=== PATIENT | female | born 1940 | race Caucasian/White ===

== ENCOUNTER 2017-12-11 13:17 | Emergency (ER) | payer OTHER ==
[2017-12-11 14:00] LABS: Absolute Lymphocytes (CBC) 1.8 K/uL (0.7-4.9); Absolute Monocytes 0.4 K/uL (0.1-1.3); Absolute Neutrophil 4.1 K/uL (1.8-8.0); Hematocrit 39.6 % (36.0-45.0); Lymphocytes % 26.6 % (15.3-44.8); MCH 30.9 pg (27.0-35.0); MCV 91.3 fL (80-100); Monocytes % 6.3 % (3.3-12.3); RBC Red Blood Cell Count 4.33 M/uL (3.86-4.86)
[2017-12-11 14:04] LABS: Protime INR 2.93
--- NOTE | 2017-12-11 14:29 | RAD REPORT ---
EXAM DESCRIPTION: CT - Head Brain Wo Cont - 12/11/2017 1:49 pm CLINICAL HISTORY: Weakness, possible heat exhaustion history skin cancer head and neck region COMPARISON: Radiation planning study December 07 TECHNIQUE: Axial 5 mm thick images of the head were obtained without IV contrast. All CT scans are performed using dose optimization technique as appropriate and may include automated exposure control or mA/KV adjustment according to patient size. FINDINGS: No intracranial hemorrhage, mass, edema or shift of mid-line structures. No acute cortical based infarction identified. Atrophy changes are relatively mild. Ventricles are prominent for the a mount of atrophy but similar to the comparison. Patient has extensive white matter disease. White mat ter findings are similar to the short term comparison. Mastoid air cells and visualized portions of the paranasal sinuses are clear. No acute bony findings. IMPRESSION: Atrophy changes are mild. Chronic ischemic change or white matter disease pattern patter ns extensive but not changed from December 07. No acute intracranial finding.
[2017-12-11 14:43] LABS: Potassium 3.5 mEq/L (3.6-5.0)
[2017-12-11 14:50] LABS: Albumin 3.7 g/dL (3.2-5.5); Bilirubin Direct 0.1 mg/dL (0-0.2); Bilirubin Total 0.6 mg/dL (0.3-1.2); Magnesium 1.7 mg/dL (1.8-2.5); Protein, Total 6.7 g/dL (6.0-8.3)
[2017-12-11] MEDS ORDERED: NA CHLORIDE 0.9% 500 ML ONE (15:03)
[2017-12-11] MEDS ORDERED: MAGNESIUM SULFATE 1 gm IVPB 1 GM/100 ML BAG IV ONE (15:03)
[2017-12-11 15:33] LABS: Urine Blood TRACE (NEG); Urine Glucose NEGATIVE (NEG); Urine Protein NEGATIVE (NEG)
[2017-12-11 15:56] LABS: Urine Bacteria <20 /HPF (<20); Urine Culture Reflex Order REFLEXED; Urine RBC <5 /HPF (NONE SEEN)
--- NOTE | 2017-12-11 16:17 | ER ---
Nurse's Notes [facility] Name: Mickie Herman Age: 77 yrs Sex: Female : 1940 Arrival Date: 12/11/2017 Time: 13:18 Bed 25 Private MD: Diagnosis: Weakness-resolved;Exposure to excessive natural heat;Hypomagnesemia Presentation: 12/11 13:22 Presenting complaint: Patient states: "I was gardening outside and I think I aa5 overheated". Pt c/o feeling shaky. Transition of care: patient was not received from another setting of care. Onset of symptoms was December 11, 2017. Initial Sepsis Screen: Does the patient meet any 2 criteria? No. Patient's initial sepsis screen is negative. Does the patient have a suspected source of infection? No. Patient's initial sepsis screen is negative. Care prior to arrival: None. 13:22 Method Of Arrival: Wheelchair aa5 13:22 Acuity: REBECCA 3 aa5 Historical: - Allergies: 13:24 No Known Allergies; aa5 - PMHx: 13:24 Hypertension; DVT; CVA; R breast cancer; aa5 - PSHx: 13:23 Appendectomy; Hysterectomy; aa5 Screenin:30 Abuse screen: Denies threats or abuse. Denies injuries from another. Nutritional aj1 screening: No deficits noted. Tuberculosis screening: No symptoms or risk factors identified. 14:24 Fall Risk None identified. aj1 Assessment: 13:30 General: Appears in no apparent distress. comfortable, Behavior is calm, cooperative, aj1 appropriate for age. Pain: Denies pain. Neuro: Level of Consciousness is awake, alert, obeys commands, Oriented to person, place, time, situation, Trade Manager are equal bilaterally Moves all extremities. Full function Gait is steady, Speech is normal, Facial symmetry appears normal, Pupils are PERRLA, Intact Reports dizziness, generalized weakness. Denies blurred vision headache. Cardiovascular: Patient's skin is warm and dry. Respiratory: Airway is patent Respiratory effort is even, unlabored, Respiratory pattern is regular, symmetrical. GI: No signs and/or symptoms were reported involving the gastrointestinal system. : No signs and/or symptoms were reported regarding the genitourinary system. EENT: No signs and/or symptoms were reported regarding the EENT system. Derm: Skin is pink, warm \\T\\ dry. normal. Musculoskeletal: Circulation, motion, and sensation intact. 14:24 Reassessment: Patient appears in no apparent distress at this time. No changes from aj1 previously documented assessment. Patient and/or family updated on plan of care and expected duration. Pain level reassessed. Patient is alert, oriented x 3, equal unlabored respirations, skin warm/dry/pink. 15:13 Reassessment: Patient appears in no apparent distress at this time. No changes from aj1 previously documented assessment. Patient and/or family updated on plan of care and expected duration. Pain level reassessed. Patient is alert, oriented x 3, equal unlabored respirations, skin warm/dry/pink. 16:44 Reassessment: Patient appears in no apparent distress at this time. No changes from aj1 previously documented assessment. Patient and/or family updated on plan of care and expected duration. Pain level reassessed. Patient is alert, oriented x 3, equal unlabored respirations, skin warm/dry/pink. Vital Signs: 13:25 BP 132 / 59; Pulse 90; Resp 16 S; Temp 97.6(TE); Pulse Ox 97% on R/A; Weight 87.54 kg aa5 (R); Height 5 ft. 0 in. (152.40 cm) (R); Pain 0/10; 14:24 BP 123 / 71; Pulse 70; Resp 18; Pulse Ox 98% on R/A; aj1 15:13 BP 130 / 70; Pulse 65; Resp 18; Pulse Ox 98% on R/A; aj1 16:44 BP 138 / 69; Pulse 62; Resp 18; Pulse Ox 98% on R/A; aj1 13:25 Body Mass Index 37.69 (87.54 kg, 152.40 cm) aa5 ED Course: 13:18 Patient arrived in ED. sb2 13:23 Triage completed. aa5 13:23 Arm band placed on. aa5 13:23 Patient placed in an exam room, on a stretcher. aa5 13:30 Pushpa Dorman, RN is Primary Nurse. aj1 13:30 Patient has correct armband on for positive identification. Bed in low position. Call aj1 light in reach. Side rails up X 1. radiation monitor on. Pulse ox on. NIBP on. 13:30 No provider procedures requiring assistance completed. aj1 13:32 Taylor Springer FNP-C is [facility]. kb 13:32 Landen Hussein MD is Attending Physician. kb 13:45 Initial lab(s) drawn, by me, sent to lab. Inserted saline lock: 20 gauge in left [facility] antecubital area, using aseptic technique. Blood collected. 13:48 CT completed. Patient moved to CT via stretcher. Patient moved back from CT. cw1 13:49 CT Head Brain wo Cont In Process Unspecified. EDMS 14:05 EKG done, by ED staff, reviewed by Taylor RAMOS. 3 14:51 Urine collected: clean catch specimen, cloudy. dh3 16:45 IV discontinued, intact, bleeding controlled, No redness/swelling at site. Pressure aj1 dressing applied. Administered Medications: 15:08 Drug: NS 0.9% 500 ml Route: IV; Rate: bolus; Site: left antecubital; aj1 16:46 Follow up: IV Status: Completed infusion; IV Intake: 500ml aj1 15:08 Drug: Magnesium Sulfate 1 grams Route: IVPB; Infused Over: 1 hrs; Site: left [facility] antecubital; 16:45 Follow up: IV Status: Completed infusion; IV Intake: 100ml aj1 Intake: 16:45 IV: 100ml; Total: 100ml. aj1 16:46 IV: 500ml; Total: 600ml. aj1 Outcome: 16:16 Discharge ordered by MD. kb 16:45 Discharged to home ambulatory. aj1 16:45 Condition: good 16:45 Discharge instructions given to patient, Instructed on discharge instructions, follow up and referral plans. Demonstrated understanding of instructions, follow-up care. 16:46 Patient left the ED. aj1 Signatures: Dispatcher [employer] EDKY Taylor Springer FNP-C FNP-Ckb Johnson, Angela RN RN aj1 Marycruz White, AUNG RN Soumya Covington 1 Dinorah Montenegro 3 Esmer Marie sb2
--- NOTE | 2017-12-11 16:17 | EDPHYS ---
Physician Documentation [facility] Name: Mickie Herman Age: 77 yrs Sex: Female : 1940 Arrival Date: 12/11/2017 Time: 13:18 Bed 25 Private MD: ED Physician Landen Hussein HPI: 12/11 13:49 This 77 yrs old Female presents to ER via Wheelchair with complaints of kb Doesn't Feel Right, Heat Exposure. 13:49 The patient presents with generalized weakness. Onset: The symptoms/episode kb began/occurred 4 day(s) ago. Context: occurred at home, outdoors, occurred while the patient was gardening. just prior to the episode the patient experienced no apparent symptoms. Modifying factors: The symptoms are alleviated by nothing, the symptoms are aggravated by nothing. Associated signs and symptoms: The patient has no apparent associated signs or symptoms. Severity of symptoms: At their worst the symptoms were moderate in the emergency department the symptoms are unchanged. Patient's baseline: Neuro: alert and fully oriented, Motor: no deficits, Ambulation: walks without assistance, Speech: normal. The patient has not experienced similar symptoms in the past. The patient has not recently seen a physician. Pt states she was working in the garden on 12/07/17 and got overheated. States she started feeling weak and not right. States she went in and cooled off then started feeling better. States she feels like she can't get her thoughts together or think right. Came in today because she wanted to make sure everything looked ok. . Historical: - Allergies: 13:24 No Known Allergies; aa5 - PMHx: 13:24 Hypertension; DVT; CVA; R breast cancer; aa5 - PSHx: 13:23 Appendectomy; Hysterectomy; aa5 ROS: 16:12 Constitutional: Negative for fever, chills, and weight loss, ENT: Negative for injury, kb pain, and discharge, Neck: Negative for injury, pain, and swelling, Cardiovascular: Negative for chest pain, palpitations, and edema, Respiratory: Negative for shortness of breath, cough, wheezing, and pleuritic chest pain, Abdomen/GI: Negative for abdominal pain, nausea, vomiting, diarrhea, and constipation, Back: Negative for injury and pain, : Negative for injury, bleeding, discharge, and swelling, MS/Extremity: Negative for injury and deformity, Skin: Negative for injury, rash, and discoloration. 16:12 Neuro: Positive for weakness. Exam: 16:09 Constitutional: This is a well developed, well nourished patient who is awake, alert, kb and in no acute distress. Head/Face: Normocephalic, atraumatic. Eyes: Pupils equal round and reactive to light, extra-ocular motions intact. Lids and lashes normal. Conjunctiva and sclera are non-icteric and not injected. Cornea within normal limits. Periorbital areas with no swelling, redness, or edema. ENT: Nares patent. No nasal discharge, no septal abnormalities noted. Tympanic membranes are normal and external auditory canals are clear. Oropharynx with no redness, swelling, or masses, exudates, or evidence of obstruction, uvula midline. Mucous membranes moist. Neck: Trachea midline, no thyromegaly or masses palpated, and no cervical lymphadenopathy. Supple, full range of motion without nuchal rigidity, or vertebral point tenderness. No Meningismus. Chest/axilla: Normal chest wall appearance and motion. Nontender with no deformity. No lesions are appreciated. Cardiovascular: Regular rate and rhythm with a normal S1 and S2. No gallops, murmurs, or rubs. Normal PMI, no JVD. No pulse deficits. Respiratory: Lungs have equal breath sounds bilaterally, clear to auscultation and percussion. No rales, rhonchi or wheezes noted. No increased work of breathing, no retractions or nasal flaring. Abdomen/GI: Soft, non-tender, with normal bowel sounds. No distension or tympany. No guarding or rebound. No evidence of tenderness throughout. Skin: Warm, dry with normal turgor. Normal color with no rashes, no lesions, and no evidence of cellulitis. MS/ Extremity: Pulses equal, no cyanosis. Neurovascular intact. Full, normal range of motion. Neuro: Awake and alert, GCS 15, oriented to person, place, time, and situation. Cranial nerves II-XII grossly intact. Motor strength 5/5 in all extremities. Sensory grossly intact. Cerebellar exam normal. Normal gait. Vital Signs: 13:25 BP 132 / 59; Pulse 90; Resp 16 S; Temp 97.6(TE); Pulse Ox 97% on R/A; Weight 87.54 kg aa5 (R); Height 5 ft. 0 in. (152.40 cm) (R); Pain 0/10; 14:24 BP 123 / 71; Pulse 70; Resp 18; Pulse Ox 98% on R/A; aj1 15:13 BP 130 / 70; Pulse 65; Resp 18; Pulse Ox 98% on R/A; aj1 16:44 BP 138 / 69; Pulse 62; Resp 18; Pulse Ox 98% on R/A; aj1 13:25 Body Mass Index 37.69 (87.54 kg, 152.40 cm) aa5 MDM: 13:32 Patient medically screened. kb 13:52 Data reviewed: vital signs, nurses notes. Data interpreted: Pulse oximetry: on room air kb is 97 %. Interpretation: normal. 16:11 Counseling: I had a detailed discussion with the patient and/or guardian regarding: the kb historical points, exam findings, and any diagnostic results supporting the discharge/admit diagnosis, lab results, radiology results, the need for outpatient follow up, a family practitioner, to return to the emergency department if symptoms worsen or persist or if there are any questions or concerns that arise at home. 12/11 13:32 Order name: Basic Metabolic Panel; Complete Time: 14:50 kb 12/11 13:32 Order name: BNP; Complete Time: 14:18 kb 12/11 13:32 Order name: CBC with Diff; Complete Time: 14:06 kb 12/11 13:32 Order name: Ckmb; Complete Time: 14:50 kb 12/11 13:32 Order name: CPK; Complete Time: 14:50 kb 12/11 13:32 Order name: LFT's; Complete Time: 14:50 kb 12/11 13:32 Order name: Magnesium; Complete Time: 14:50 kb 12/11 13:32 Order name: PT-INR; Complete Time: 14:22 kb 12/11 13:32 Order name: Ptt, Activated; Complete Time: 14:22 kb 12/11 13:32 Order name: Troponin (emerg Dept Use Only); Complete Time: 14:14 kb 12/11 13:36 Order name: CT Head Brain wo Cont; Complete Time: 14:30 kb 12/11 14:50 Order name: Urine Microscopic Only; Complete Time: 15:58 kb 12/11 14:56 Order name: Urine Dipstick--Ancillary (enter results); Complete Time: 15:36 ag 12/11 15:58 Order name: Urine Culture EDDE 12/11 13:32 Order name: EKG; Complete Time: 13:33 kb 12/11 13:32 Order name: Cardiac monitoring; Complete Time: 14:26 kb 12/11 13:32 Order name: EKG - Nurse/Tech; Complete Time: 14:26 kb 12/11 13:32 Order name: IV Saline Lock; Complete Time: 13:47 kb 12/11 13:32 Order name: Labs collected and sent; Complete Time: 13:47 kb 12/11 13:32 Order name: O2 Per Protocol; Complete Time: 13:48 kb 12/11 13:32 Order name: O2 Sat Monitoring; Complete Time: 13:48 kb 12/11 13:32 Order name: Urine Dipstick-Ancillary (obtain specimen); Complete Time: 14:51 kb Administered Medications: 15:08 Drug: NS 0.9% 500 ml Route: IV; Rate: bolus; Site: left antecubital; [facility] 16:46 Follow up: IV Status: Completed infusion; IV Intake: 500ml [facility] 15:08 Drug: Magnesium Sulfate 1 grams Route: IVPB; Infused Over: 1 hrs; Site: left [facility] antecubital; 16:45 Follow up: IV Status: Completed infusion; IV Intake: 100ml [facility] Disposition: 18:55 Co-signature as Attending Physician, Landen Hussein MD. Disposition: 12/11/17 16:16 Discharged to Home. Impression: Weakness - resolved, Exposure to excessive natural heat, Hypomagnesemia. - Condition is Stable. - Discharge Instructions: Heat-Related Illness, Weakness, [id number]. - Medication Reconciliation Form, Thank You Letter, Antibiotic Education, Prescription Opioid Use form. - Follow up: Emergency Department; When: As needed; Reason: Worsening of condition. Follow up: Private Physician; When: 2 - 3 days; Reason: Recheck today's complaints, Continuance of care, Re-evaluation by your physician. Signatures: Dispatcher [employer] EDDE Taylor Springer, LORIC Pushpa Jacobo RN RN aj1 Marycruz White RN RN aa5 Landen Hussein MD MD gs Corrections: (The following items were deleted from the chart) 16:15 13:49 Pt states she was working in the garden on 12/07/17 and got overheated. States she kb started feeling weak and not right. States she went in and cooled off, felt a little better, but still isn't back to normal. States she feels like she can't get her thoughts together or think right. . kb 16:17 16:16 12/11/2017 16:16 Discharged to Home. Impression: Weakness - resolved; Exposure to kb excessive natural heat. Condition is Stable. Forms are Medication Reconciliation Form, Thank You Letter, Antibiotic Education, Prescription Opioid Use. Follow up: Emergency Department; When: As needed; Reason: Worsening of condition. Follow up: Private Physician; When: 2 - 3 days; Reason: Recheck today's complaints, Continuance of care, Re-evaluation by your physician. kb 16:46 16:17 12/11/2017 16:16 Discharged to Home. Impression: Weakness - resolved; Exposure to aj1 excessive natural heat; Hypomagnesemia. Condition is Stable. Discharge Instructions: Heat-Related Illness, Weakness, [id number]. Forms are Medication Reconciliation Form, Thank You Letter, Antibiotic Education, Prescription Opioid Use. Follow up: Emergency Department; When: As needed; Reason: Worsening of condition. Follow up: Private Physician; When: 2 - 3 days; Reason: Recheck today's complaints, Continuance of care, Re-evaluation by your physician. kb
--- NOTE | 2017-12-12 10:41 | EKG ---
Test Date: 2017-12-11 Test Time: 14:03:39 Computer Forensic Examiner: KACI MEASUREMENT RESULTS: Intervals: Rate: 73 MN: 154 QRSD: 84 QT: 400 QTc: 440 [place]: P: 19 MN: 154 QRS: 55 T: 59 INTERPRETIVE STATEMENTS: Sinus rhythm with premature atrial complexes Otherwise normal ECG Compared to ECG 02/18/2009 09:24:48 PAC s are now present Electronically Signed On 12-12-17 10:41:01 CDT by Abdullahi Ross
== END 2017-12-11 16:46 | disposition home or self-care (01) ==
LOC: ER 13:17
DX: E83.42 Hypomagnesemia (principal); X30.XXXA Exposure to excessive natural heat, initial encounter; I10 Essential (primary) hypertension; Z85.3 Personal history of malignant neoplasm of breast
CPT/HCPCS: 36415; 70450; 80048; 80076; 82550; 82553; 83735; 83880; 84484; 85025; 85610; 85730; 87086; 87088; 93005; 96365; 96366; 99285; J3475; 81003; 81015; 96361

== ENCOUNTER 2019-08-27 19:34 | Observation (INO) | payer OTHER ==
[2019-08-27] MEDS ORDERED: ALBUTEROL 2.5 MG/3 ML NEB SOL ONE (20:17)
[2019-08-27 20:45] LABS: Absolute Lymphocytes (CBC) 1.9 K/uL (0.7-4.9); Basophils % 0.5 % (0-1.3); Hematocrit 39.6 % (36.0-45.0); Lymphocytes % 29.5 % (15.3-44.8); MPV 7.6 fL (7.6-11.3)
[2019-08-27 21:04] LABS: ALT/SGPT 28 U/L (12-78); AST/SGOT 28 U/L (15-37); Albumin 3.1 g/dL (3.4-5.0); Alkaline Phosphatase 97 U/L (45-117); BUN Blood Urea Nitrogen 12 mg/dL (7-18); Bicarbonate 26 mmol/L (21-32); Bilirubin Direct 0.1 mg/dL (0-0.2); Bilirubin Total 0.3 mg/dL (0.2-1.0); Glucose Level 115 mg/dL (74-106); Magnesium 2.1 mg/dL (1.8-2.4); NT PRO-BNP 252 pg/mL (<450); Potassium 3.5 mmol/L (3.5-5.1); Protein, Total 6.3 g/dL (6.4-8.2); Sodium Level 140 mmol/L (136-145); Troponin (Emerg Dept Use Only) < 0.02 ng/mL (0.0-0.045)
[2019-08-27] MEDS ORDERED: CEFTRIAXONE/SWI 1gm 1 GM/10 ML SYR ONE (22:22)
[2019-08-27] MEDS ORDERED: METHYLPREDNISOLONE 125 MG INJ ONE (22:22)
--- NOTE | 2019-08-27 23:48 | EDPHYS ---
Physician Documentation [facility] Name: Mickie Herman Age: 78 yrs Sex: Female : 1940 Arrival Date: 08/27/2019 Time: 19:38 Bed 18 Private MD: Jeison Zamora ED Physician Jameel Cortes HPI: 08/27 20:06 This 78 yrs old Female presents to ER via Ambulatory with complaints of pm1 Breathing Difficulty. 20:06 The patient has shortness of breath at rest. Onset: The symptoms/episode began/occurred pm1 Cough present for 1 month. Increased shortness of breath the past few days. The patient's shortness of breath is aggravated by nothing, is alleviated by nothing. Associated signs and symptoms: Pertinent positives: chest pain, productive cough, with coughing, Pertinent negatives: fever, nausea, vomiting. Severity of symptoms: in the emergency department the symptoms are worse. Seen by PCP and Oncologist 2 weeks ago. Was advised to take Benadryl as needed but patient reports no improvement. She is getting worse. Historical: - Allergies: 19:45 No Known Allergies; aj1 - Home Meds: 19:45 anastrozole 1 mg oral tab 1 tab once daily [Active]; pravastatin 80 mg oral tab 1 tab aj1 once daily [Active]; pantoprazole 40 mg oral TbEC 1 tab once daily [Active]; loratadine 10 mg oral TbDL 1 tab once daily [Active]; amlodipine 10 mg tab 1 tab once daily [Active]; sertraline 100 mg oral tab 1 tab once daily [Active]; warfarin 6 mg Oral tab 1 tab once daily [Active]; levothyroxine 100 mcg tab 1 tab once daily [Active]; ezetimibe oral oral 1 tab once daily [Active]; Calcium 600 600 mg (1,500 mg) oral tab daily [Active]; zinc sulfate 220 (50) mg Oral cap daily [Active]; trazodone 50 mg Oral tab 1 tab 3 times per day [Active]; - PMHx: 19:45 CVA; DVT; Hypertension; R breast cancer; Sleep Apnea; Hyperlipidemia; aj1 - Immunization history:: Flu vaccine is up to date. - Coronavirus screen:: The patient has NOT traveled to [place], [place], or [place] in the past 14 days. - Social history:: Smoking status: Patient denies any tobacco usage or history of. - Ebola Screening: : Patient denies travel to an Ebola-affected area in the 21 days before illness onset. ROS: 20:06 Constitutional: Negative for fever, chills, and weight loss, Eyes: Negative for injury, pm1 pain, redness, and discharge, ENT: Negative for injury, pain, and discharge, Neck: Negative for injury, pain, and swelling. 20:06 Abdomen/GI: Negative for abdominal pain, nausea, vomiting, diarrhea, and constipation, Back: Negative for injury and pain, : Negative for injury, bleeding, discharge, and swelling, MS/Extremity: Negative for injury and deformity, Skin: Negative for injury, rash, and discoloration, Neuro: Negative for headache, weakness, numbness, tingling, and seizure. 20:06 Cardiovascular: Positive for chest pain, with cough, Negative for edema, palpitations. 20:06 Respiratory: Positive for cough, shortness of breath. Exam: 20:06 Constitutional: This is a well developed, well nourished patient who is awake, alert, pm1 and in no acute distress. Head/Face: Normocephalic, atraumatic. Neck: Trachea midline, no thyromegaly or masses palpated, and no cervical lymphadenopathy. Supple, full range of motion without nuchal rigidity, or vertebral point tenderness. No Meningismus. Chest/axilla: Normal chest wall appearance and motion. Nontender with no deformity. No lesions are appreciated. Cardiovascular: Regular rate and rhythm with a normal S1 and S2. No gallops, murmurs, or rubs. Normal PMI, no JVD. No pulse deficits. 20:06 Abdomen/GI: Soft, non-tender, with normal bowel sounds. No distension or tympany. No guarding or rebound. No evidence of tenderness throughout. Back: No spinal tenderness. No costovertebral tenderness. Full range of motion. Skin: Warm, dry with normal turgor. Normal color with no rashes, no lesions, and no evidence of cellulitis. MS/ Extremity: Pulses equal, no cyanosis. Neurovascular intact. Full, normal range of motion. 20:06 Respiratory: the patient does not display signs of respiratory distress, Respirations: tachypnea, Breath sounds: wheezing: expiratory Respiratory rate: 28 20:06 Neuro: Orientation: is normal, Motor: is normal, moves all fours, Sensation: is normal, no obvious gross deficits. Vital Signs: 19:45 BP 112 / 68; Pulse 78; Resp 28; Temp 98.5; Pulse Ox 96% on R/A; Weight 86.64 kg (R); aj1 Height 5 ft. 0 in. (152.40 cm) (R); Pain 0/10; 21:15 BP 138 / 68; Pulse 71; Resp 29; Pulse Ox 99% on R/A; Pain 0/10; fu 22:00 BP 136 / 75; Pulse 62; Resp 35; Temp 98.5; Pulse Ox 99% on R/A; Pain 0/10; fu 23:00 BP 124 / 79; Pulse 63; Resp 27; Pulse Ox 97% ; Pain 0/10; fu 23:45 BP 143 / 70; Pulse 78; Resp 21; Pulse Ox 98% on R/A; fu / 00:16 BP 131 / 59; Pulse 65; Resp 26; Pulse Ox 99% ; Pain 0/10; fu 01:20 BP 012 / ???; fu 01:30 BP 125 / 69; Pulse 66; Resp 30; Temp 99.1(O); Pulse Ox 95% on R/A; Pain 0/10; fu 08/27 19:45 Body Mass Index 37.30 (86.64 kg, 152.40 cm) aj1 MDM: 08/27 19:59 Patient medically screened. pm1 23:35 Data reviewed: vital signs. Data interpreted: Pulse oximetry: on room air is 96 %. pm1 Interpretation: normal. 23:45 Counseling: I had a detailed discussion with the patient and/or guardian regarding: the pm1 historical points, exam findings, and any diagnostic results supporting the discharge/admit diagnosis, lab results, radiology results, the need for further work-up and treatment in the hospital. 23:45 ED course: Patient initially felt comfortable going home but informed the patient that pm1 I would like her to stay for observation and treatment due to a PSI port score of 107, Class IV. . 08/28 00:30 Physician consultation: Johanna Pacheco MD was called at 00:30, was contacted at 00:30, pm1 regarding admission, patient's condition, and will see patient. 08/27 20:06 Order name: Basic Metabolic Panel; Complete Time: 21:35 pm1 08/27 20:06 Order name: CBC with Diff; Complete Time: 21:35 pm1 08/27 20:06 Order name: LFT's; Complete Time: 21:35 pm1 08/27 20:06 Order name: Magnesium; Complete Time: 21:35 pm1 08/27 20:06 Order name: NT PRO-BNP; Complete Time: 21:35 pm1 08/27 20:06 Order name: PT-INR; Complete Time: 21:35 pm1 08/27 20:06 Order name: Troponin (emerg Dept Use Only); Complete Time: 21:35 pm1 08/27 20:06 Order name: XRAY Chest (1 view) pm08/27 23:46 Order name: Blood Culture Adult (2) pm08/27 23:46 Order name: Flu; Complete Time: 00:39 pm1 08/27 20:06 Order name: EKG; Complete Time: 20:07 pm1 08/27 20:06 Order name: Cardiac monitoring; Complete Time: 20:32 pm1 08/27 20:06 Order name: EKG - Nurse/Tech; Complete Time: 21:09 pm1 08/27 20:06 Order name: IV Saline Lock; Complete Time: 21:09 pm1 08/27 20:06 Order name: Labs collected and sent; Complete Time: 21:09 pm08/27 20:06 Order name: O2 Per Protocol; Complete Time: 21:09 pm08/27 20:06 Order name: O2 Sat Monitoring; Complete Time: 21:09 pm1 Administered Medications: 08/27 20:17 Drug: Albuterol 5 mg Route: Inhalation; fu 21:17 Follow up: Response: No adverse reaction fu 22:23 Drug: SOLU-Medrol 125 mg Route: IVP; Site: left antecubital; fu 23:23 Follow up: Response: No adverse reaction fu 22:29 Drug: Rocephin 1 grams Route: IV; Rate: calculated rate; Site: left antecubital; fu 23:30 Follow up: Response: No adverse reaction fu 08/28 00:20 Drug: Tussionex Pennkinetic ER 5 ml Route: PO; fu 01:20 Follow up: BP 012 / ???; Response: Marked relief of symptoms fu 01:10 Drug: AZITHromycin 500 mg Route: IVPB; Infused Over: 1 hrs; Site: left hand; fu Disposition: 02:59 Co-signature as Attending Physician, Jameel Cortes MD. pkl Disposition: 08/27/19 23:46 Hospitalization ordered by Johanna Pacheco for Inpatient Admission. Preliminary diagnosis is Pneumonia, unspecified organism. - Bed requested for Telemetry/MedSurg (Inpatient). - Status is Inpatient Admission. fu - Condition is Stable. - Problem is new. - Symptoms have improved. UTI on Admission? No Signatures: Dispatcher [employer] EDMS Pushpa Dorman RN RN aj1 Lori Hood RN RN Jameel Cortes MD MD pkl Sergio Brito NP RADIATOR MECHANIC pm1 Marty Weber RN RN fu Corrections: (The following items were deleted from the chart) 00:20 08/27 23:46 Hospitalization Ordered by Johanna Pacheco MD for Inpatient Admission. Preliminary diagnosis is Pneumonia, unspecified organism. Bed requested for Telemetry/MedSurg (Inpatient). Status is Inpatient Admission. Condition is Stable. Problem is new. Symptoms have improved. UTI on Admission? No. pm1 08/28 02:26 00:20 08/27/2019 23:46 Hospitalization Ordered by Johanna Pacheco MD for Inpatient fu Admission. Preliminary diagnosis is Pneumonia, unspecified organism. Bed requested for Telemetry/MedSurg (Inpatient). Status is Inpatient Admission. Condition is Stable. Problem is new. Symptoms have improved. UTI on Admission? No.
--- NOTE | 2019-08-27 23:48 | ER ---
Nurse's Notes [facility] Name: Mickie Herman Age: 78 yrs Sex: Female : 1940 Arrival Date: 08/27/2019 Time: 19:38 Bed 18 Private MD: Jeison Zamora Diagnosis: Pneumonia, unspecified organism Presentation: 08/27 19:39 Presenting complaint: Patient states: Cough for the past month, her doctor told her to aj1 take Benadryl but its getting worse and worse. Denies fever. Patient also reports shortness of breath. Denies chest pain. Transition of care: patient was not received from another setting of care. Onset of symptoms was August 2019. Risk Assessment: Do you want to hurt yourself or someone else? Patient reports no desire to harm self or others. Care prior to arrival: None. 19:39 Method Of Arrival: Ambulatory [facility] 19:39 Acuity: REBECCA 3 aj 19:47 Initial Sepsis Screen: Does the patient meet any 2 criteria? RR > 20 per min. No. aj1 Patient's initial sepsis screen is negative. Does the patient have a suspected source of infection? Yes: Productive cough/pneumonia. Triage Assessment: 19:45 General: Appears in no apparent distress. uncomfortable, Behavior is calm, cooperative, aj1 appropriate for age. Pain: Denies pain. Neuro: Level of Consciousness is awake, alert, obeys commands. Cardiovascular: Patient's skin is warm and dry. Respiratory: Reports shortness of breath at rest Airway is patent Respiratory effort is even, labored, Respiratory pattern is regular, symmetrical, tachypnea Onset: The symptoms/episode began/occurred gradually, the patient has moderate shortness of breath. Historical: - Allergies: 19:45 No Known Allergies; aj1 - Home Meds: 19:45 anastrozole 1 mg oral tab 1 tab once daily [Active]; pravastatin 80 mg oral tab 1 tab aj1 once daily [Active]; pantoprazole 40 mg oral TbEC 1 tab once daily [Active]; loratadine 10 mg oral TbDL 1 tab once daily [Active]; amlodipine 10 mg tab 1 tab once daily [Active]; sertraline 100 mg oral tab 1 tab once daily [Active]; warfarin 6 mg Oral tab 1 tab once daily [Active]; levothyroxine 100 mcg tab 1 tab once daily [Active]; ezetimibe oral oral 1 tab once daily [Active]; Calcium 600 600 mg (1,500 mg) oral tab daily [Active]; zinc sulfate 220 (50) mg Oral cap daily [Active]; trazodone 50 mg Oral tab 1 tab 3 times per day [Active]; - PMHx: 19:45 CVA; DVT; Hypertension; R breast cancer; Sleep Apnea; Hyperlipidemia; aj1 - Immunization history:: Flu vaccine is up to date. - Coronavirus screen:: The patient has NOT traveled to [place], [place], or [place] in the past 14 days. - Social history:: Smoking status: Patient denies any tobacco usage or history of. - Ebola Screening: : Patient denies travel to an Ebola-affected area in the 21 days before illness onset. Screenin:37 Abuse screen: Denies threats or abuse. Nutritional screening: No deficits noted. fu Tuberculosis screening: No symptoms or risk factors identified. Fall Risk None identified. Assessment: 21:34 General: Appears uncomfortable, Behavior is calm, cooperative, appropriate for age, fu Denies fever, feeling ill, fatigue. Pain: Denies pain. Neuro: Level of Consciousness is awake, alert, obeys commands, Oriented to person, place, time, situation. Cardiovascular: Denies chest pain, diaphoresis, fatigue, lightheadedness, nausea, palpitations, Capillary refill < 3 seconds Rhythm is regular. Respiratory: Reports shortness of breath Airway is patent Breath sounds with crackles bilaterally. Onset: The symptoms/episode began/occurred several weeks ago, worst today.. 22:00 Reassessment: Patient is alert, oriented x 3, equal unlabored respirations, skin fu warm/dry/pink. SOB on exertion and mild jittery noted. 23:42 Reassessment: Patient is alert, oriented x 3, equal unlabored respirations, skin fu warm/dry/pink. Patient states feeling better. TANK STAVE ASSEMBLER at patient's room, talking to the patient. 08/28 00:45 Reassessment: IV access not working, removed. fu 01:36 Reassessment: Patient appears in no apparent distress at this time. Patient is alert, fu oriented x 3, equal unlabored respirations, skin warm/dry/pink. Patient states feeling better. . Vital Signs: 08/27 19:45 BP 112 / 68; Pulse 78; Resp 28; Temp 98.5; Pulse Ox 96% on R/A; Weight 86.64 kg (R); aj1 Height 5 ft. 0 in. (152.40 cm) (R); Pain 0/10; 21:15 BP 138 / 68; Pulse 71; Resp 29; Pulse Ox 99% on R/A; Pain 0/10; fu 22:00 BP 136 / 75; Pulse 62; Resp 35; Temp 98.5; Pulse Ox 99% on R/A; Pain 0/10; fu 23:00 BP 124 / 79; Pulse 63; Resp 27; Pulse Ox 97% ; Pain 0/10; fu 23:45 BP 143 / 70; Pulse 78; Resp 21; Pulse Ox 98% on R/A; fu 08/28 00:16 BP 131 / 59; Pulse 65; Resp 26; Pulse Ox 99% ; Pain 0/10; fu 01:20 BP 012 / ???; fu 01:30 BP 125 / 69; Pulse 66; Resp 30; Temp 99.1(O); Pulse Ox 95% on R/A; Pain 0/10; fu 08/27 19:45 Body Mass Index 37.30 (86.64 kg, 152.40 cm) aj1 ED Course: 08/27 19:38 Patient arrived in ED. es 19:38 Jeison Zamora MD is Private Physician. es 19:41 Triage completed. aj1 19:47 Arm band placed on Patient placed in an exam room. aj1 19:55 Sergio Brito NP is PHCP. pm1 19:55 Jameel Cortes MD is Attending Physician. pm1 20:01 EKG done, by ED staff, reviewed by Jameel Cortes MD. mt 20:10 Inserted saline lock: 22 gauge in left antecubital area, using aseptic technique. Blood fu collected. 20:11 Marty Weber, AUNG is Primary Nurse. fu 20:49 XRAY Chest (1 view) In Process Unspecified. EDMS 20:50 X-ray completed. Portable x-ray completed in exam room. Patient tolerated procedure mh1 well. 21:37 Patient has correct armband on for positive identification. Placed in gown. Bed in low fu position. Call light in reach. Side rails up X 1. 21:37 No provider procedures requiring assistance completed. fu 23:45 Johanna Pacheco MD is Hospitalizing Provider. pm1 23:45 First set of blood cultures drawn by me. fu 08/28 00:45 Second set of blood cultures drawn. Inserted saline lock: 22 gauge in left forearm, fu using aseptic technique. 01:38 Patient admitted, IV remains in place. fu Administered Medications: 08/27 20:17 Drug: Albuterol 5 mg Route: Inhalation; fu 21:17 Follow up: Response: No adverse reaction fu 22:23 Drug: SOLU-Medrol 125 mg Route: IVP; Site: left antecubital; fu 23:23 Follow up: Response: No adverse reaction fu 22:29 Drug: Rocephin 1 grams Route: IV; Rate: calculated rate; Site: left antecubital; fu 23:30 Follow up: Response: No adverse reaction fu 08/28 00:20 Drug: Tussionex Pennkinetic ER 5 ml Route: PO; fu 01:20 Follow up: BP 012 / ???; Response: Marked relief of symptoms fu 01:10 Drug: AZITHromycin 500 mg Route: IVPB; Infused Over: 1 hrs; Site: left hand; fu Outcome: 08/27 23:46 Decision to Hospitalize by Provider. pm1 08/28 01:37 Admitted to Tele accompanied by nurse, room 412, with chart, Report called to terrie Jarquin RN Condition: stable Instructed on the need for admit. 02:26 Patient left the ED. fu Signatures: Dispatcher [employer] Pushpa Brown RN RN Mickie Gama [facility] Sergio Brito NP TANK STAVE ASSEMBLER pm1 Theresa Aceves mt, Felix, RN RN fu
[2019-08-27] MEDS ORDERED: AZITHROMYCIN 500 MG INJ IVPB ONE (23:55)
[2019-08-27] MEDS ORDERED: NA CHLORIDE 0.9% 250 ML ONE (23:55)
[2019-08-28] MEDS ORDERED: HYDROCODONE/CHLORPHEN 5 ML/OSYR ONE (00:20)
[2019-08-28] MEDS ORDERED: ALBUTEROL 2.5 MG/3 ML NEB SOL NEB PRN ×2 (01:04→17:00)
[2019-08-28] MEDS ORDERED: IPRATROPIUM BROM 0.5MG/2.5ML NEB PRN (01:04)
[2019-08-28] MEDS ORDERED: NA CHLORIDE 0.9% 1,000 ML IV SCH (02:00)
[2019-08-28] MEDS ORDERED: Levofloxacin 750mg IV 750 MG/150 ML BAG IV SCH (02:00)
[2019-08-28 02:32] VITALS: BMI 36.5
[2019-08-28] MEDS ORDERED: VANCOMYCIN 2 GM in NA CHLORIDE 0.9% 500 ML IVPB ONE (03:00)
[2019-08-28] MEDS ORDERED: NA CHLORIDE 0.9% 500 ML ONE (03:37)
[2019-08-28] MEDS ORDERED: VANCOMYCIN 1 GM/VIAL ONE (03:37)
[2019-08-28] MEDS ORDERED: METHYLPREDNISOLONE 40 MG INJ IV SCH (06:00)
--- NOTE | 2019-08-28 08:04 | RAD REPORT ---
EXAM DESCRIPTION: RAD - Chest Single View - 08/27/2019 8:48 pm CLINICAL HISTORY: SOB COMPARISON: CHEST PA AND LAT 2 VIEW dated 01/16/2011; CHEST PA AND LAT 2 VIEW dated 07/14/2010 TECHNIQUE: AP portable chest image was obtained 08/27/2019 8:48 pm . FINDINGS: No focal mass or consolidation. Patient has a mildly prominent baseline interstitial patte rn. Today's examination shows slight increase in the interstitial pattern along with mild vascular en gorgement. Heart size is increased fractionally. Trachea is midline. No measurable pleural effusion a nd no pneumothorax. No acute bony abnormality seen. No acute aortic findings suspected. IMPRESSION: Minimal CHF/volume overload pattern is evident.
--- NOTE | 2019-08-28 08:25 | EKG ---
Test Date: 2019-08-27 Test Time: 19:56:14 Occupational Therapy Co Director: PAT MEASUREMENT RESULTS: Intervals: Rate: 70 WA: 150 QRSD: 78 QT: 410 QTc: 442 [place]: P: 55 WA: 150 QRS: 34 T: 44 INTERPRETIVE STATEMENTS: Normal sinus rhythm Normal ECG Compared to ECG 12/11/2017 14:03:39 Atrial premature complex(es) no longer present Electronically Signed On 08-28-19 08:24:49 FISHER HAND LINE by Abdullahi Ross
[2019-08-28] MEDS ORDERED: TRAZODONE 50 MG TABLET PO PRN (08:28)
[2019-08-28] MEDS ORDERED: POTASSIUM CL SA 10 MEQ TAB PO ONE (09:00)
[2019-08-28] MEDS ORDERED: PANTOPRAZOLE 40MG TABLET PO SCH (09:00)
[2019-08-28] MEDS: CALCIUM CARBONATE 500 MG TAB PO SCH ×2 (09:27→20:41)
[2019-08-28] MEDS: ZINC SULFATE 220 MG CAP PO SCH (09:27)
[2019-08-28] MEDS: EZETIMIBE 10 MG TAB PO SCH (09:27)
[2019-08-28] MEDS: predniSONE 10 MG TAB PO SCH ×2 (09:27→20:41)
[2019-08-28] MEDS: AMLODIPINE 10 MG TAB PO SCH (09:27)
[2019-08-28] MEDS: SERTRALINE HCL 100 MG TAB PO SCH (09:27)
[2019-08-28] MEDS: ANASTROZOLE 1 MG TAB PO SCH (09:30)
[2019-08-28] MEDS: FOLBIC 1 TAB PO SCH (09:30)
--- NOTE | 2019-08-28 09:47 | RAD REPORT ---
EXAM DESCRIPTION: RAD - Chest Pa And Lat (2 Views) - 08/28/2019 9:23 am CLINICAL HISTORY: Followup SOB, CHF vs Pneumonia COMPARISON: Chest Single View dated 08/27/2019; CHEST PA AND LAT 2 VIEW dated 01/16/2011 TECHNIQUE: Frontal and lateral views of the chest were obtained. FINDINGS: The lungs are fibrotic with interstitial pattern showing a slight decrease in prominence. Heart size and vasculature have improved. Heart size is normal and central vasculature is within nor mal limits. No pleural effusion or pneumothorax seen. No acute bony finding noted. No aortic abnor mality. IMPRESSION: Mild CHF/ volume overload pattern has resolved or nearly fully resolved. Patient has baseline interstitial fibrosis.
--- NOTE | 2019-08-28 09:57 | P.HP ---
Certification for Inpatient Patient admitted to: Observation With expected LOS: <2 Midnights Patient will require the following post-hospital care: None Practitioner: I am a practitioner with admitting privileges, knowledge of patient current condition, hospital course, and medical plan of care. Services: Services provided to patient in accordance with Admission requirements found in Title 42 Section 412.3 of the Code of Federal Regulations Patient History Date of Service: 08/28/19 Reason for admission: Shortness of breath/coughing and congestion History of Present Illness: Patient is a 78-year-old female who comes into the hospital with upper respiratory infection. She has been very short of breath for the last 24 hr. Her symptoms have gradually worsened. She came into the ER for further evaluation. In the ER her chest x-ray did not reveal any abnormalities. She does state that she has lived with smokers her whole life. Her parents both smoke when she was growing up. She has had 2 marriages & both of her have smoked. Decision was made to admit her to the hospital for further evaluation. Allergies No Known Allergies Allergy (Verified 08/28/19 02:54) Home Medications: Amlodipine Besylate 1 tab PO DAILY 08/28/19 Anastrozole [Arimidex*] 1 mg PO DAILY 08/28/19 Bimatoprost [Lumigan] 1 drop OPTH BEDTIME 08/28/19 Calcium Carbonate [Calcium] 1 tab PO BID 08/28/19 Ezetimibe 1 tab PO DAILY 08/28/19 Levothyroxine Sodium 1 tab PO [id number] 08/28/19 Loratadine [Claritin*] 1 tab PO DAILY 08/28/19 Pantoprazole [Protonix Tab*] 1 tab PO DAILY 08/28/19 Pravastatin Sodium 1 tab PO BEDTIME 08/28/19 Sertraline HCl 100 mg PO DAILY 08/28/19 Trazodone [Desyrel*] 1 tab PO BEDTIME 08/28/19 Vit D3/Folic Acid/B2/B6/B12 [Folgard Tablet] 1,000 iu PO DAILY 08/28/19 Warfarin Sodium 1 tab PO DAILY 6PM 08/28/19 Zinc 1 tab PO DAILY 08/28/19 - Past Medical/Surgical History Has patient received pneumonia vaccine in the past: Yes Diabetic: No -: CVA -: anxiety -: DVT -: hypertension -: sleep apnea -: Breast cancer -: right knee suegery - Family History Mother Medical History: Heart disease, Stroke Father Medical History: Heart disease - Social History Smoking Status: Never smoker Alcohol use: No CD- Drugs: No Caffeine use: Yes Place of Residence: Home Review of Systems 10-point ROS is otherwise unremarkable Physical Examination - Vital Signs Temperature: 97.5 F Blood Pressure: 123/66 Pulse: 79 Respirations: 16 Pulse Ox (%): 98 - Physical Exam General: Alert, In no apparent distress, Oriented x3 HEENT: Atraumatic, PERRLA, Mucous membr. moist/pink, EOMI, Sclerae nonicteric Neck: Supple, 2+ carotid pulse no bruit, No LAD, Without JVD or thyroid abnormality Respiratory: Diminished, Crackles/rales, Expiratory wheezes Cardiovascular: Regular rate/rhythm, Normal S1 S2, No murmurs Gastrointestinal: Normal bowel sounds, Soft and benign, Non-distended, No tenderness Musculoskeletal: No clubbing, No swelling, No tenderness Integumentary: No rashes Neurological: Normal gait, Normal speech, Normal strength at 5/5 x4 extr, Normal tone, Sensation intact, Cranial nerves 3-12 intact, Normal affect Lymphatics: No axilla or inguinal lymphadenopathy - Studies Laboratory Data (last 24 hrs) 08/27/19 20:28: PT 44.8 H, INR 4.00 08/27/19 20:28: WBC 6.4, Hgb 13.4, Hct 39.6, Plt Count 364 08/27/19 20:28: Sodium 140, Potassium 3.5, BUN 12, Creatinine 1.07, Glucose 115 H, Magnesium 2.1, Total Bilirubin 0.3, AST 28, ALT 28, Alkaline Phosphatase 97 Microbiology Data (last 24 hrs): 08/28/19 00:05 Nasopharnyx Influenza Type A Antigen Screen - Final 08/28/19 00:05 Nasopharnyx Influenza Type B Antigen Screen - Final Assessment & Plan - Problems (Diagnosis) (1) Upper respiratory tract infection Current Visit: Yes Status: Acute (2) Acute exacerbation of chronic obstructive pulmonary disease Current Visit: Yes Status: Acute (3) History of hypertension Current Visit: Yes Status: Acute (4) History of breast cancer Current Visit: Yes Status: Acute (5) History of CVA (cerebrovascular accident) Current Visit: Yes Status: Acute - Plan Plan: 1. Continue with albuterol and Atrovent nebs 2. Continue with IV steroids & IV antibiotics 3. Outpatient pulmonary function testing 4. Pulmonary consultation 5. Room air O2 sats 6. Repeat chest x-ray in the morning 7. CPAP for sleep apnea 8. GI and DVT prophylaxis Discharge Plan: Home Plan to discharge in: 48 Hours - Advance Directives Does patient have a Living Will: Yes Does patient have a Durable POA for Healthcare: No - Code Status/Comfort Care Code Status Assessed: Yes Code Status: Full Code Critical Care: No Time Spent Managing PTS Care (In Minutes): 45
[2019-08-28 11:11] LABS: Thyroid Stimulating Hormone 1.58 uIU/mL (0.360-3.740)
--- NOTE | 2019-08-28 12:39 | ECHO ---
HEIGHT: 5 ft 0 in WEIGHT: 187 lb 0 oz DATE OF STUDY: 08/28/[address]: Johanna Pacheco MD 2-DIMENSIONAL: YES M.MODE: YES DOPPLER: YES COLOR FLOW: YES TDS: YES PORTABLE: NO DEFINITY: NO BUBBLE STUDY: NO DIAGNOSIS: DYSPNEA CARDIAC HISTORY: CATHERIZATION: NO SURGERY: NO PROSTHETIC VALVE: NO PACEMAKER: NO MEASUREMENTS (cm) DIASTOLIC (NORMALS) SYSTOLIC (NORMALS) IVSd 1.1 (0.6-1.2) LA Diam 3.4 (1.9-4.0) LVEF 68% LVIDd 5.1 (3.5-5.7) LVIDs 3.1 (2.0-3.5) %FS 38% LVPWd 1.2 (0.6-1.2) Ao Diam 2.9 (2.0-3.7) 2 DIMENSIONAL ASSESSMENT: RIGHT ATRIUM: NORMAL LEFT ATRIUM: NORMAL RIGHT VENTRICLE: NORMAL LEFT VENTRICLE: NORMAL TRICUSPID VALVE: NORMAL MITRAL VALVE: NORMAL PULMONIC VALVE: NORMAL AORTIC VALVE: NORMAL PERICARDIAL EFFUSION: NONE AORTIC ROOT: NORMAL LEFT VENTRICULAR WALL MOTION: NORMAL. DOPPLER/COLOR FLOW: MILD TRICUSPID REGURGITATION. NORMAL RIGHT VENTRICULAR SYSTOLIC PRESSURE. COMMENTS: NORMAL 2D ECHO WITH DOPPLER. MILD TRICUSPID REGURGITATION. TECHNOLOGIST: KATHI WOOD
--- NOTE | 2019-08-28 12:51 | P.CNS ---
Date of Consult: 08/28/19 Chief Complaint: Shortness of breath/coughing and congestion History of Present Illness: Patient is 78 years of age was experiencing some coughing spells was seen by oncologist and was sent here to the hospital as some slight associated dyspnea no prior history of pulmonary complaints patient is never smoked history of sleep apnea compliant with therapy has room-air sat today is 98% Allergies No Known Allergies Allergy (Verified 08/28/19 02:54) Home Medications: Amlodipine Besylate 1 tab PO DAILY 08/28/19 Anastrozole [Arimidex*] 1 mg PO DAILY 08/28/19 Bimatoprost [Lumigan] 1 drop OPTH BEDTIME 08/28/19 Calcium Carbonate [Calcium] 1 tab PO BID 08/28/19 Ezetimibe 1 tab PO DAILY 08/28/19 Levothyroxine Sodium 1 tab PO [id number] 08/28/19 Loratadine [Claritin*] 1 tab PO DAILY 08/28/19 Pantoprazole [Protonix Tab*] 1 tab PO DAILY 08/28/19 Pravastatin Sodium 1 tab PO BEDTIME 08/28/19 Sertraline HCl 100 mg PO DAILY 08/28/19 Trazodone [Desyrel*] 1 tab PO BEDTIME 08/28/19 Vit D3/Folic Acid/B2/B6/B12 [Folgard Tablet] 1,000 iu PO DAILY 08/28/19 Warfarin Sodium 1 tab PO DAILY 6PM 08/28/19 Zinc 1 tab PO DAILY 08/28/19 - Past Medical/Surgical History Diabetic: No -: CVA -: anxiety -: DVT -: hypertension -: sleep apnea -: Breast cancer -: right knee suegery - Family History Mother Medical History: Heart disease, Stroke Father Medical History: Heart disease - Social History Alcohol use: No CD- Drugs: No Caffeine use: Yes Place of Residence: Home Review of Systems 10-point ROS is otherwise unremarkable Physical Examination Temp Pulse Resp BP Pulse Ox 97 F 79 18 140/67 97 08/28/19 12:00 08/28/19 12:00 08/28/19 12:00 08/28/19 12:00 08/28/19 12:00 General: Alert, Oriented x3 Neck: Supple Respiratory: Clear to auscultation bilaterally Cardiovascular: No edema, Regular rate/rhythm, Normal S1 S2 Gastrointestinal: Normal bowel sounds, Soft and benign Musculoskeletal: No clubbing Integumentary: No rashes Laboratory Data (last 24 hrs) 08/27/19 20:28: PT 44.8 H, INR 4.00 08/27/19 20:28: WBC 6.4, Hgb 13.4, Hct 39.6, Plt Count 364 08/27/19 20:28: Sodium 140, Potassium 3.5, BUN 12, Creatinine 1.07, Glucose 115 H, Magnesium 2.1, Total Bilirubin 0.3, AST 28, ALT 28, Alkaline Phosphatase 97 - Problems (1) Cough Current Visit: Yes Status: Acute Plan: Patient is 78 years of age added with a slight cough there is no evidence of any infection her chest x-rays clear patient has normal echocardiogram no evidence of congestive heart failure or pneumonia labs are all normal oxygenation satisfactory vital signs all stable patient is on therapeutic warfarin dosage Agree with discharge patient has CPAP at home is compliant with therapy use over -the-counter cough suppressant
--- NOTE | 2019-08-28 13:02 | P.PN ---
Subjective Date of Service: 08/28/19 Primary Care Provider: unknown Chief Complaint: Shortness of breath/coughing and congestion Subjective: Improving Physical Examination - Vital Signs Temperature: 97 F Blood Pressure: 140/67 Pulse: 79 Respirations: 18 Pulse Ox (%): 97 - Physical Exam General: Alert, In no apparent distress, Oriented x3, Cooperative HEENT: Atraumatic Neck: Supple Respiratory: Crackles/rales (Minimal crackles) Cardiovascular: Normal pulses, Regular rate/rhythm Gastrointestinal: Normal bowel sounds, No tenderness, No masses, No rebound, No guarding Neurological: Normal speech, Normal strength at 5/5 x4 extr, Normal tone, Normal affect - Studies Laboratory Data (last 24 hrs) 08/27/19 20:28: PT 44.8 H, INR 4.00 08/27/19 20:28: WBC 6.4, Hgb 13.4, Hct 39.6, Plt Count 364 08/27/19 20:28: Sodium 140, Potassium 3.5, BUN 12, Creatinine 1.07, Glucose 115 H, Magnesium 2.1, Total Bilirubin 0.3, AST 28, ALT 28, Alkaline Phosphatase 97 Microbiology Data (last 24 hrs): 08/28/19 00:05 Nasopharnyx Influenza Type A Antigen Screen - Final 08/28/19 00:05 Nasopharnyx Influenza Type B Antigen Screen - Final Medications List Reviewed: Yes Assessment & Plan Discharge Plan: Home Plan to discharge in: 24 Hours Physician Review Additional Text: Impression: Shortness of breath secondary to acute on chronic diastolic CHF Possible COPD Obstructive sleep apnea on CPAP History of breast cancer 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 Will discontinue antibiotic therapy. Pro calcitonin negative. Likely CHF related. Will start low-dose Lasix. Will continue with a 1500 cc per day fluid restriction. Wean off oxygen. Anticipate discharge within the next 24 hr. Possible COPD: Will have pulmonology evaluate this as an outpatient. Patient may require pulmonary function test to further evaluate. Obstructive sleep apnea on CPAP: Continue CPAP at night History of breast cancer: Continue medication. 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 Maintain INR between 2 and 3. Hypothyroidism: Continue medication. Depression: Continue medication. Time Spent Managing Pts Care (In Minutes): 55
[2019-08-28] MEDS ORDERED: WARFARIN SODIUM 6 MG TAB PO SCH (18:00)
[2019-08-28] MEDS ORDERED: BIMATOPROST OPHTH DROPS/2.5 ML BTL OPTH SCH (18:30)
[2019-08-28] MEDS ORDERED: ATORVASTATIN 10 MG TAB PO SCH (21:00)
[2019-08-28 23:34] VITALS: O2SAT 96
[2019-08-29] MEDS: PANTOPRAZOLE 40MG TABLET PO SCH ×2 (05:24→07:58)
[2019-08-29] MEDS ORDERED: LEVOTHYROXINE SOD 0.1 MG TAB PO SCH (06:00)
[2019-08-29 06:28] LABS: Basophils % 0.4 % (0-1.3); Hematocrit 40.2 % (36.0-45.0); Lymphocytes % 6.7 % (15.3-44.8); MPV 7.8 fL (7.6-11.3); RBC Red Blood Cell Count 4.45 M/uL (3.86-4.86)
[2019-08-29 06:58] LABS: Blood Morphology Comment NOT SEEN (NOT SEEN); Platelet Estimate ADEQ; Urine White Blood Cell Casts OK
[2019-08-29 07:15] LABS: Magnesium 2.7 mg/dL (1.8-2.4); Phosphorus 3.4 mg/dL (2.5-4.9); Potassium 4.1 mmol/L (3.5-5.1)
[2019-08-29] MEDS: SERTRALINE HCL 100 MG TAB PO SCH (07:57)
[2019-08-29] MEDS: predniSONE 10 MG TAB PO SCH (07:58)
[2019-08-29] MEDS: EZETIMIBE 10 MG TAB PO SCH (07:58)
[2019-08-29] MEDS: CALCIUM CARBONATE 500 MG TAB PO SCH (07:58)
[2019-08-29] MEDS: FOLBIC 1 TAB PO SCH (07:59)
[2019-08-29] MEDS: AMLODIPINE 10 MG TAB PO SCH (07:59)
[2019-08-29 08:00] VITALS: BP 134/79
[2019-08-29] MEDS: ANASTROZOLE 1 MG TAB PO SCH (08:00)
[2019-08-29] MEDS: ZINC SULFATE 220 MG CAP PO SCH (08:00)
[2019-08-29 08:21] VITALS: TEMP 97
--- NOTE | 2019-08-29 09:05 | P.DS ---
Admission Date: 08/28/19 Discharge Date: 08/29/19 Primary Care Provider: unknown Disposition: ROUTINE DISCHARGE Discharge Condition: GOOD Reason for Admission: Shortness of breath/coughing and congestion Consultations: Pulmonary-Dr. Rivera Procedures: CXR: COMPARISON: Chest Single View dated 08/27/2019; CHEST PA AND LAT 2 VIEW dated TECHNIQUE: Frontal and lateral views of the chest were obtained. FINDINGS: The lungs are fibrotic with interstitial pattern showing a slight decrease in prominence. Heart size and vasculature have improved. Heart size is normal and central vasculature is within normal limits. No pleural effusion or pneumothorax seen. No acute bony finding noted. No aortic abnormality. IMPRESSION: Mild CHF/ volume overload pattern has resolved or nearly fully resolved. Patient has baseline interstitial fibrosis. ECHO: Ejection fraction 68% COMPARISON: Chest Single View dated 08/27/2019; CHEST PA AND LAT 2 VIEW dated TECHNIQUE: Frontal and lateral views of the chest were obtained. FINDINGS: The lungs are fibrotic with interstitial pattern showing a slight decrease in prominence. Heart size and vasculature have improved. Heart size is normal and central vasculature is within normal limits. No pleural effusion or pneumothorax seen. No acute bony finding noted. No aortic abnormality. IMPRESSION: Mild CHF/ volume overload pattern has resolved or nearly fully resolved. Patient has baseline interstitial fibrosis. Medical Problem List: Shortness of breath likely secondary to acute on chronic diastolic CHF with possible underlying COPD Obstructive sleep apnea on CPAP History of breast cancer History of DVT on chronic anti coagulation therapy Hypothyroidism Depression Hyperlipidemia Hypertension Brief History of Present Illness: 78-year-old female presented to the emergency room with shortness of breath. Patient with multiple medical problems. Patient was evaluated in the ER. There was some concern of possible infection versus CHF or COPD. Patient was admitted for further evaluation. Hospital Course: Patient presented with shortness of breath. Infection was ruled out. Shortness of breath likely related to acute on chronic diastolic CHF with possible underlying COPD. Patient lived with who smoked regularly. Ejection fraction 68%. Patient responded well to fluid restriction and diuretic therapy. Patient also received prednisone. At discharge she is without significant shortness of breath. For possible underlying CHF the patient will continue with a 1500 cc per day fluid restriction and low-salt diet. Patient may continue with Lasix 20 mg daily. If her weight is controlled along with fluid intake, Lasix can be adjusted to as needed. For possible underlying COPD patient will continue with prednisone 10 mg daily for the next 5 days. Patient will be provided albuterol 2 puffs 3 times a day as needed for shortness of breath. Will recommend patient to follow up with pulmonology further evaluate. Patient would benefit with pulmonary function test as an outpatient to further evaluate for possible underlying COPD. This can be done with the help of pulmonology. Patient with obstructive sleep apnea. Patient continues with CPAP at night. This can be further monitored by pulmonology as an outpatient. Patient with history of breast cancer. Patient continue with her current medication Arimidex 1 mg daily. Patient with history of DVT on chronic anti coalition therapy. Patient will continue with Coumadin 6 mg once daily. Maintain INR between 2.3. Further adjustment and monitoring can be done by her PCP. Recommend to recheck INR within 1 week. Patient with hypothyroidism. Tsh within normal range. At discharge she will continue with her medication levothyroxine 100 mcg daily. Patient with depression. At discharge she will continue with her medication sertraline 100 mg daily. Patient also takes trazodone. Will recommend to decreased trazodone as needed to 25 mg at bedtime for insomnia. Patient with hypertension. At discharge she will continue with Norvasc 10 mg daily. Recommend to maintain blood pressures less 150/80. Further adjustment can be done by her PCP. Patient with hyperlipidemia. At discharge she will continue with Zetia 10 mg daily and pravastatin 80 mg daily. Patient with GERD. At discharge she will continue with Protonix 40 mg daily. . Vital Signs/Physical Exam: Temp Pulse Resp BP Pulse Ox 97 F 93 H 18 134/79 98 08/29/19 08:00 08/29/19 08:00 08/29/19 08:00 08/29/19 08:00 08/29/19 08:00 General: Alert, In no apparent distress, Oriented x3, Cooperative HEENT: Atraumatic Neck: Supple Respiratory: Clear to auscultation bilaterally, Normal air movement Cardiovascular: Normal pulses, Regular rate/rhythm Gastrointestinal: Normal bowel sounds, Soft and benign, Non-distended Musculoskeletal: No erythema, No tenderness, No warmth Integumentary: No tenderness/swelling, No erythema, No warmth, No cyanosis Neurological: Normal speech, Normal strength at 5/5 x4 extr, Normal tone Laboratory Data at Discharge: WBC 15.3 K/uL (4.3-10.9) H D 08/29/19 05:54 Hgb 13.5 g/dL (12.0-15.0) 08/29/19 05:54 Hct 40.2 % (36.0-45.0) 08/29/19 05:54 Plt Count 342 K/uL (152-406) 08/29/19 05:54 PT 44.8 SECONDS (9.5-12.5) H 08/27/19 20:28 INR 4.00 08/27/19 20:28 Sodium 141 mmol/L (136-145) 08/29/19 05:54 Potassium 4.1 mmol/L (3.5-5.1) 08/29/19 05:54 BUN 17 mg/dL (7-18) 08/29/19 05:54 Creatinine 0.78 mg/dL (0.55-1.3) 08/29/19 05:54 Glucose 135 mg/dL (74-106) H 08/29/19 05:54 Phosphorus 3.4 mg/dL (2.5-4.9) 08/29/19 05:54 Magnesium 2.7 mg/dL (1.8-2.4) H D 08/29/19 05:54 Total Bilirubin 0.3 mg/dL (0.2-1.0) 08/27/19 20:28 AST 28 U/L (15-37) 08/27/19 20:28 ALT 28 U/L (12-78) 08/27/19 20:28 Alkaline Phosphatase 97 U/L (45-117) 08/27/19 20:28 Triglycerides 83 mg/dL (<150) 08/29/19 05:54 Cholesterol 186 mg/dL (<200) 08/29/19 05:54 HDL Cholesterol 64 mg/dL (40-60) H 08/29/19 05:54 Cholesterol/HDL Ratio 2.91 08/29/19 05:54 Home Medications: Amlodipine Besylate 1 tab PO DAILY 08/28/19 Anastrozole [Arimidex*] 1 mg PO DAILY 08/28/19 Bimatoprost [Lumigan] 1 drop OPTH BEDTIME 08/28/19 Calcium Carbonate [Calcium] 1 tab PO BID 08/28/19 Ezetimibe 1 tab PO DAILY 08/28/19 Levothyroxine Sodium 1 tab PO [id number] 08/28/19 Loratadine [Claritin*] 1 tab PO DAILY 08/28/19 Pantoprazole [Protonix Tab*] 1 tab PO DAILY 08/28/19 Pravastatin Sodium 1 tab PO BEDTIME 08/28/19 Sertraline HCl 100 mg PO DAILY 08/28/19 Trazodone [Desyrel*] 1 tab PO BEDTIME 08/28/19 Vit D3/Folic Acid/B2/B6/B12 [Folgard Tablet] 1,000 iu PO DAILY 08/28/19 Warfarin Sodium 1 tab PO DAILY 6PM 08/28/19 Zinc 1 tab PO DAILY 08/28/19 Albuterol Sulfate [Proair Hfa] 2 puff IH TID PRN #1 hfa.[email or web address] 08/29/19 Furosemide [Lasix] 20 mg PO DAILY #30 tab 08/29/19 predniSONE [Deltasone*] 10 mg PO DAILY #5 tab 08/29/19 New Medications: Albuterol Sulfate [Proair Hfa] 2 puff IH TID PRN #1 hfa.aer.ad PRN Reason: Shortness Of Breath Furosemide [Lasix] 20 mg PO DAILY #30 tab predniSONE [Deltasone*] 10 mg PO DAILY #5 tab Patient Discharge Instructions: 1. Recommend follow up with her PCP in 1 week to follow up this hospitalization. 2. Patient presented with shortness of breath. Infection was ruled out. Shortness of breath likely related to acute on chronic diastolic CHF with possible underlying COPD. Patient lived with who smoked regularly. Ejection fraction 68%. Patient responded well to fluid restriction and diuretic therapy. Patient also received prednisone. At discharge she is without significant shortness of breath. For possible underlying CHF the patient will continue with a 1500 cc per day fluid restriction and low-salt diet. Patient may continue with Lasix 20 mg daily. If her weight is controlled along with fluid intake, Lasix can be adjusted to as needed. For possible underlying COPD patient will continue with prednisone 10 mg daily for the next 5 days. Patient will be provided albuterol 2 puffs 3 times a day as needed for shortness of breath. Will recommend patient to follow up with pulmonology further evaluate. Patient would benefit with pulmonary function test as an outpatient to further evaluate for possible underlying COPD. This can be done with the help of pulmonology. 3. Patient with obstructive sleep apnea. Patient continues with CPAP at night. This can be further monitored by pulmonology as an outpatient. 4. Patient with history of breast cancer. Patient continue with her current medication Arimidex 1 mg daily. 5. Patient with history of DVT on chronic anti coalition therapy. Patient will continue with Coumadin 6 mg once daily. Maintain INR between 2.3. Further adjustment and monitoring can be done by her PCP. Recommend to recheck INR within 1 week. 6. Patient with hypothyroidism. Tsh within normal range. At discharge she will continue with her medication levothyroxine 100 mcg daily. 7. Patient with depression. At discharge she will continue with her medication sertraline 100 mg daily. Patient also takes trazodone. Will recommend to decreased trazodone as needed to 25 mg at bedtime for insomnia. 8. Patient with hypertension. At discharge she will continue with Norvasc 10 mg daily. Recommend to maintain blood pressures less 150/80. Further adjustment can be done by her PCP. 9. Patient with hyperlipidemia. At discharge she will continue with Zetia 10 mg daily and pravastatin 80 mg daily. 10. Patient with GERD. At discharge she will continue with Protonix 40 mg daily. Diet: AHA Activity: Ad yin Time spent managing pt's care (in minutes): 55
[2019-08-29] MEDS ORDERED: VANCOMYCIN 1.5 GM in NA CHLORIDE 0.9% 500 ML IVPB SCH (15:00)
== END 2019-08-29 10:38 | disposition home or self-care (01) ==
LOC: ER 19:34 → ERHOLD 08-28 01:04 → 4TH 08-28 01:44
PROVIDERS: ADMIT Hospitalist; ATTEND Family Medicine
PROC: 5A09357 Assistance with Respiratory Ventilation, Less than 24 Consecutive Hours, Continuous Positive Airway Pressure (ICD-10-PCS; principal; 2019-08-29)
DX: I50.33 Acute on chronic diastolic (congestive) heart failure (principal); I10 Essential (primary) hypertension; G47.33 Obstructive sleep apnea (adult) (pediatric); E03.9 Hypothyroidism, unspecified; F32.9 Major depressive disorder, single episode, unspecified; Z86.718 Personal history of other venous thrombosis and embolism; Z86.73 Personal history of transient ischemic attack (TIA), and cerebral infarction without residual deficits
CPT/HCPCS: 93005; 93306; 87040 ×2; 85025 ×2; 80048 ×2; 36415 ×2; 83735 ×2; 84100; 85610; 80061; 82947 ×5; 80076; 84443; 84484; 84439; 84145; 83880; 87804 ×2; 71045; 71046; 94760 ×3; 94660 ×2; 96375; 96374; 99285; J0456; J0696; J7030 ×2; J7040; J2930; J2920; G0378 ×3; J7512

== ENCOUNTER 2020-05-07 08:44 | Emergency (ER) | payer OTHER ==
[2020-05-07 10:11] LABS: Urine Blood TRACE (NEG); Urine Glucose NEGATIVE (NEG); Urine Protein NEGATIVE (NEG); Urine Specific Gravity 1.025 (1.005-1.030)
[2020-05-07 10:28] LABS: Urine Bacteria >50 /HPF (<20); Urine Culture Reflex Order NOT NEEDED; Urine RBC <5 /HPF (NONE SEEN)
--- NOTE | 2020-05-07 12:12 | EDPHYS ---
Physician Documentation [facility] Name: Mickie Herman Age: 79 yrs Sex: Female : 1940 Arrival Date: 05/07/2020 Time: 08:46 Bed 6 Private MD: ED Physician Ang Roldan HPI: 05/07 09:52 This 79 yrs old Female presents to ER via Ambulatory with complaints of pm1 Urinary Problem. 09:52 Onset: The symptoms/episode began/occurred 2 day(s) ago. pm1 09:52 The patient presents with urinary symptoms, frequency, urgency. Modifying factors: The pm1 symptoms are alleviated by nothing, the symptoms are aggravated by urinating. Associated signs and symptoms: Pertinent negatives: fever, abdominal pain, flank pain. Severity of symptoms: in the emergency department the symptoms are unchanged. The patient has not recently seen a physician, has an appointment scheduled, today. Historical: - Allergies: 09:57 No Known Allergies; rb1 - Home Meds: 09:57 spironolactone 25 mg Oral tab 1 tab 2 times per day [Active]; ProAir HFA 90 rb1 mcg/actuation inhalation HFAA 2 puffs every 6 hours [Active]; Zinc Sulfate 140 mg Oral 1 tab daily [Active]; Vitamin D3 1,000 unit oral tab daily [Active]; Lumigan 0.01 % ophthalmic drop [Active]; trazodone 50 mg Oral tab 1 tab bedtime [Active]; calcium-vitamin D3-vitamin K oral oral [Active]; levothyroxine 100 mcg tab 1 tab once daily [Active]; warfarin 5 mg oral tab [Active]; pantoprazole 40 mg oral TbEC 1 tab once daily [Active]; sertraline 100 mg Oral tab 1 tab once daily [Active]; ezetimibe 10 mg Oral 1 tab once daily [Active]; anastrozole 1 mg Oral tab 1 tab once daily [Active]; atorvastatin 20 mg oral tab 1 tab once daily [Active]; - PMHx: 09:57 CVA; DVT; Hyperlipidemia; Hypertension; R breast cancer; Sleep Apnea; rb1 - Immunization history:: Adult Immunizations up to date. - Social history:: Smoking status: Patient/guardian denies using. ROS: 09:52 Positive for urinary frequency, burning with urination, Negative for pelvic pain, pm1 flank pain. 09:52 Constitutional: Negative for fever, chills, and weight loss, Cardiovascular: Negative for chest pain, palpitations, and edema, Respiratory: Negative for shortness of breath, cough, wheezing, and pleuritic chest pain, Abdomen/GI: Negative for abdominal pain, nausea, vomiting, diarrhea, and constipation, Back: Negative for injury and pain, MS/Extremity: Negative for injury and deformity, Skin: Negative for injury, rash, and discoloration, Neuro: Negative for headache, weakness, numbness, tingling, and seizure. Exam: 09:52 Constitutional: This is a well developed, well nourished patient who is awake, alert, pm1 and in no acute distress. Head/Face: Normocephalic, atraumatic. 09:52 Skin: Warm, dry with normal turgor. Normal color with no rashes, no lesions, and no evidence of cellulitis. MS/ Extremity: Pulses equal, no cyanosis. Neurovascular intact. Full, normal range of motion. 09:52 Cardiovascular: Exam negative for acute changes, Rate: normal, Rhythm: regular, Pulses: no pulse deficits are appreciated. 09:52 Respiratory: Exam negative for acute changes, respiratory distress, shortness of breath. 09:52 Abdomen/GI: Exam negative for acute changes, Inspection: abdomen appears normal, Palpation: abdomen is soft and non-tender, in all quadrants. 09:52 Back: Exam negative for acute changes, pain, is absent. 09:52 Neuro: Exam negative for acute changes, Orientation: is normal, Mentation: is normal, Motor: is normal, moves all fours. Vital Signs: 09:26 BP 151 / 98; Pulse 75; Resp 19; Temp 97.8; Pulse Ox 95% on R/A; Weight 78.02 kg; Height rb1 5 ft. 0 in. (152.40 cm); Pain 0/10; 10:26 BP 131 / 60; Pulse 57; Resp 18; Pulse Ox 97% ; rb1 11:30 BP 144 / 56; Pulse 50; Resp 19; Pulse Ox 96% ; rb1 12:27 BP 140 / 69; Pulse 55; Resp 18; Pulse Ox 98% on R/A; rb1 09:26 Body Mass Index 33.59 (78.02 kg, 152.40 cm) rb1 MDM: 09:37 Patient medically screened. pm1 11:14 ED course: Patient with initial contaminated urine specimen. Patient with symptoms of pm1 UTI, burning with urination, frequency, small quantities of urine. Will send catheterized urine sample for culture and discharge the patient home with antibiotics. Patient with PCP visit today so she has established follow up with Dr. Young. 12:05 Data reviewed: vital signs. Data interpreted: Pulse oximetry: on room air is 97 %. pm1 Interpretation: normal. Counseling: I had a detailed discussion with the patient and/or guardian regarding: the historical points, exam findings, and any diagnostic results supporting the discharge/admit diagnosis, lab results, the need for outpatient follow up, to return to the emergency department if symptoms worsen or persist or if there are any questions or concerns that arise at home. 12:10 ED course: Due to warfarin history will start with keflex for UTI treatment pending pm1 urine culture. 05/07 09:39 Order name: Urine Microscopic Only; Complete Time: 10:41 pm1 05/07 09:51 Order name: Urine Dipstick--Ancillary (enter results); Complete Time: 10:24 bd 05/07 09:39 Order name: Urine Dipstick-Ancillary (obtain specimen); Complete Time: 12:08 pm1 05/07 10:43 Order name: Straight Cath - Urine; Complete Time: 12:04 pm1 05/07 10:43 Order name: Urine Dipstick-Ancillary (obtain specimen); Complete Time: 12:08 pm1 05/07 10:43 Order name: Urine Culture: Recollected specimen pm1 Administered Medications: No medications were administered Disposition: 17:52 Co-signature as Attending Physician, Ang Roldan MD. rn Disposition: 05/07/20 12:11 Discharged to Home. Impression: Urinary tract infection, site not specified. - Condition is Stable. - Discharge Instructions: Urinary Tract Infection, Adult. - Prescriptions for Cephalexin 500 mg Oral Capsule - take 1 capsule by ORAL route every 12 hours for 10 days; 20 capsule. - Medication Reconciliation Form, Thank You Letter, Antibiotic Education, Prescription Opioid Use form. - Follow up: Emergency Department; When: As needed; Reason: Worsening of condition. Follow up: Private Physician; When: 2 - 3 days; Reason: Recheck today's complaints, Continuance of care, Re-evaluation by your physician. - Problem is new. - Symptoms have improved. Signatures: Dispatcher [employer] EDAng Lai MD MD rn Ifrah Murphy RN RN rb1 Sergio Brito, MIX TECHNICIAN MIX TECHNICIAN pm1 Corrections: (The following items were deleted from the chart) 12:28 12:11 05/07/2020 12:11 Discharged to Home. Impression: Urinary tract infection, site rb1 not specified. Condition is Stable. Forms are Medication Reconciliation Form, Thank You Letter, Antibiotic Education, Prescription Opioid Use. Follow up: Emergency Department; When: As needed; Reason: Worsening of condition. Follow up: Private Physician; When: 2 - 3 days; Reason: Recheck today's complaints, Continuance of care, Re-evaluation by your physician. Problem is new. Symptoms have improved. pm1
--- NOTE | 2020-05-07 12:12 | ER ---
Nurse's Notes [facility] Name: Mickie Herman Age: 79 yrs Sex: Female : 1940 Arrival Date: 05/07/2020 Time: 08:46 Bed 6 Private MD: Diagnosis: Urinary tract infection, site not specified Presentation: 05/07 09:26 Chief complaint: Patient states: Pt. c/o burning with urination, frequency, and the rb1 urge to go but only dribbles when she urinates. Denies Fever. 09:26 Coronavirus screen: Client denies travel out of the [place] in the last 14 days. rb1 Coronavirus screen: At this time, the client does not indicate any symptoms associated with coronavirus-19. Ebola Screen: Patient denies travel to an Ebola-affected area in the 21 days before illness onset. Initial Sepsis Screen: Does the patient meet any 2 criteria? No. Patient's initial sepsis screen is negative. Does the patient have a suspected source of infection? Yes: Dysuria/Frequency/Urgency/UTI. Risk Assessment: Do you want to hurt yourself or someone else? Patient reports no desire to harm self or others. 09:26 Method Of Arrival: Ambulatory rb1 09:26 Acuity: REBECCA 3 rb1 Triage Assessment: 09:26 General: Appears in no apparent distress. comfortable, Behavior is calm, cooperative, rb1 Denies fever. General: Pt. reports being hot and cold at night. From the waist down feels warm, and her upper body feels cold.. Pain: Denies pain. Neuro: Level of Consciousness is awake, alert, obeys commands, Oriented to person, place, time, situation. Cardiovascular: Capillary refill < 3 seconds Patient's skin is warm and dry. Respiratory: Airway is patent Respiratory effort is even, unlabored, Respiratory pattern is regular, symmetrical. GI: No signs and/or symptoms were reported involving the gastrointestinal system. : Reports burning with urination, urinary frequency. Musculoskeletal: Swelling present in bilateral lower extremeties Pt. reports the swelling is normal for her. Historical: - Allergies: 09:57 No Known Allergies; rb1 - Home Meds: :57 spironolactone 25 mg Oral tab 1 tab 2 times per day [Active]; ProAir HFA 90 rb1 mcg/actuation inhalation HFAA 2 puffs every 6 hours [Active]; Zinc Sulfate 140 mg Oral 1 tab daily [Active]; Vitamin D3 1,000 unit oral tab daily [Active]; Lumigan 0.01 % ophthalmic drop [Active]; trazodone 50 mg Oral tab 1 tab bedtime [Active]; calcium-vitamin D3-vitamin K oral oral [Active]; levothyroxine 100 mcg tab 1 tab once daily [Active]; warfarin 5 mg oral tab [Active]; pantoprazole 40 mg oral TbEC 1 tab once daily [Active]; sertraline 100 mg Oral tab 1 tab once daily [Active]; ezetimibe 10 mg Oral 1 tab once daily [Active]; anastrozole 1 mg Oral tab 1 tab once daily [Active]; atorvastatin 20 mg oral tab 1 tab once daily [Active]; - PMHx: 09:57 CVA; DVT; Hyperlipidemia; Hypertension; R breast cancer; Sleep Apnea; rb1 - Immunization history:: Adult Immunizations up to date. - Social history:: Smoking status: Patient/guardian denies using. Screenin:26 Abuse screen: Denies threats or abuse. Nutritional screening: No deficits noted. rb1 Tuberculosis screening: No symptoms or risk factors identified. Fall Risk None identified. Assessment: 10:26 Reassessment: Patient appears in no apparent distress at this time. No changes from rb1 previously documented assessment. 11:30 Reassessment: Patient appears in no apparent distress at this time. Patient and/or rb1 family updated on plan of care and expected duration. Pain level reassessed. Patient is alert, oriented x 3, equal unlabored respirations, skin warm/dry/pink. 12:28 Reassessment: Patient appears in no apparent distress at this time. No changes from rb1 previously documented assessment. Vital Signs: 09:26 BP 151 / 98; Pulse 75; Resp 19; Temp 97.8; Pulse Ox 95% on R/A; Weight 78.02 kg; Height rb1 5 ft. 0 in. (152.40 cm); Pain 0/10; 10:26 BP 131 / 60; Pulse 57; Resp 18; Pulse Ox 97% ; rb1 11:30 BP 144 / 56; Pulse 50; Resp 19; Pulse Ox 96% ; rb1 12:27 BP 140 / 69; Pulse 55; Resp 18; Pulse Ox 98% on R/A; rb1 09:26 Body Mass Index 33.59 (78.02 kg, 152.40 cm) rb1 ED Course: 08:46 Patient arrived in ED. as 09:26 Arm band placed on right wrist. rb1 09:26 Patient has correct armband on for positive identification. Bed in low position. Call rb1 light in reach. Side rails up X 1. Pulse ox on. NIBP on. Warm blanket given. 09:27 Sergio Brito NP is PHCP. pm1 09:27 Ang Roldan MD is Attending Physician. pm1 09:30 Ifrah Murphy, RN is Primary Nurse. rb1 09:41 Triage completed. rb1 12:00 Straight cath inserted, using sterile technique, 16 Fr. Specimen obtained. Returned rb1 clear yellow urine. Patient tolerated well. 12:28 No provider procedures requiring assistance completed. Patient did not have IV access rb1 during this emergency room visit. Administered Medications: No medications were administered Outcome: 12:11 Discharge ordered by . pm1 12:28 Discharged to home ambulatory. rb1 12:28 Condition: stable 12:28 Discharge instructions given to patient, Instructed on discharge instructions, follow up and referral plans. medication usage, Demonstrated understanding of instructions, follow-up care, medications, Prescriptions given X 1. 12:28 Patient left the ED. rb1 Signatures: Antonette Gallegos as Ifrah Murphy, RN RN rb1 Sergio Brito NP CRUDE UNIT OPERATOR pm1
[2020-05-07 12:33] VITALS: TEMP 97.8
[2020-05-07 12:38] VITALS: BP 140/69; O2SAT 98
== END 2020-05-07 12:28 | disposition home or self-care (01) ==
LOC: ER 08:44
DX: N39.0 Urinary tract infection, site not specified (principal); I10 Essential (primary) hypertension; E78.5 Hyperlipidemia, unspecified; Z86.718 Personal history of other venous thrombosis and embolism; Z79.01 Long term (current) use of anticoagulants; Z85.3 Personal history of malignant neoplasm of breast
CPT/HCPCS: 51702; 81003; 81015; 87086; 87088; 99283

== ENCOUNTER 2020-10-05 12:51 | Emergency (ER) | payer OTHER ==
--- NOTE | 2020-10-05 14:48 | RAD REPORT ---
EXAM DESCRIPTION: RAD - Hip Right 2 View - 10/05/2020 2:43 pm CLINICAL HISTORY: leg pain Pain, swelling COMPARISON: No comparisons FINDINGS: Moderate arthritic changes are present involving the right hip. No acute fracture, disloca tion or AVN.
[2020-10-05] MEDS ORDERED: ONDANSETRON 4 MG (ODT) TAB ONE (15:01)
[2020-10-05] MEDS ORDERED: MORPHINE 4 MG/ML SYR ONE (15:01)
--- NOTE | 2020-10-05 15:44 | ER ---
Nurse's Notes [facility] Name: Mickie Herman Age: 79 yrs Sex: Female : 1940 Arrival Date: 10/05/2020 Time: 12:57 Bed 17 Private MD: Diagnosis: Osteoarthritis of hip Presentation: 10/05 13:02 Chief complaint: Patient states: R hip pain for 3 weeks, no trauma. Dr. Young didn't ll1 seem to worry about it, states she prob. has arthritis. Coronavirus screen: Client denies travel out of the [place] in the last 14 days. At this time, the client does not indicate any symptoms associated with coronavirus-19. Ebola Screen: Patient denies travel to an Ebola-affected area in the 21 days before illness onset. Initial Sepsis Screen: Does the patient meet any 2 criteria? No. Patient's initial sepsis screen is negative. Does the patient have a suspected source of infection? Yes: Bone or joint infection. Risk Assessment: Do you want to hurt yourself or someone else? Patient reports no desire to harm self or others. Onset of symptoms was September 15, 2020. 13:02 Method Of Arrival: Wheelchair ll1 13:02 Acuity: REBECCA 4 ll1 Historical: - Allergies: 13:07 No Known Allergies; ll1 - PMHx: 13:07 CVA; DVT; Hypertension; Hyperlipidemia; R breast cancer; Sleep Apnea; Hypothyroidism; ll1 COPD; L eye CA; - PSHx: 13:07 Hysterectomy; Thyroidectomy; ll1 - Immunization history:: Client reports receiving the 1st dose of the Covid vaccine, Flu vaccine is up to date. - Social history:: Smoking status: Patient denies any tobacco usage or history of. Screenin:34 Abuse screen: Denies threats or abuse. Nutritional screening: No deficits noted. bw Tuberculosis screening: No symptoms or risk factors identified. Fall Risk Gait- Weak (10 pts.). Assessment: 14:34 Reassessment:. General: Appears in no apparent distress. Behavior is calm, cooperative, bw appropriate for age. Pain: Complains of pain in buttocks. Neuro: No deficits noted. Cardiovascular: No deficits noted. Respiratory: No deficits noted. GI: No deficits noted. Musculoskeletal: Reports pain in right hip. 17:00 Reassessment: No changes from previously documented assessment. Patient and/or family ll1 updated on plan of care and expected duration. Pain level reassessed. Patient is alert, oriented x 3, equal unlabored respirations, skin warm/dry/pink. Patient states feeling better. Vital Signs: 13:02 BP 127 / 63; Pulse 73; Resp 17; Temp 98.5; Pulse Ox 98% ; Weight 82.55 kg; Height 5 ft. ll1 0 in. (152.40 cm); Pain 3/10; 17:15 BP 142 / 62; Pulse 64; Resp 17; Pulse Ox 100% on R/A; ll1 13:02 Body Mass Index 35.54 (82.55 kg, 152.40 cm) ll1 ED Course: 12:57 Patient arrived in ED. ds1 13:04 Triage completed. ll1 13:07 Arm band placed on. ll1 14:11 Saqib Doll PA is PHCP. [facility] 14:11 Oli Almazan MD is Attending Physician. [facility] 14:34 Karis Hood, ANUG is Primary Nurse. bw 14:34 Patient has correct armband on for positive identification. Call light in reach. Side bw rails up X 1. Adult w/ patient. Pulse ox on. NIBP on. 14:34 No provider procedures requiring assistance completed. bw 14:43 Hip Right 2 View XRAY In Process Unspecified. EDMS 15:43 Keyon Minor MD is Referral Physician. [facility] 18:03 Patient did not have IV access during this emergency room visit. 1 Administered Medications: 14:50 Drug: morphine 4 mg Route: IM; Site: left deltoid; bw 18:04 Follow up: Response: No adverse reaction; Pain is decreased; RASS: Alert and Calm (0) ll1 14:50 Drug: Zofran (Ondansetron) 4 mg Route: PO; bw 18:05 Follow up: Response: No adverse reaction; RASS: Alert and Calm (0) 1 Outcome: 15:44 Discharge ordered by . [facility] 17:10 Discharged to home via wheelchair. ll1 17:10 Condition: stable 17:10 Discharge instructions given to patient, Instructed on discharge instructions, follow up and referral plans. medication usage, Demonstrated understanding of instructions, follow-up care, medications, Prescriptions given X 1. 17:17 Patient left the ED. ll1 Signatures: Dispatcher [employer] EDMS Saqib Doll PA PA jmm Sanford, Demi ds1 Dean Buckley RN RN ll1 Karis Hood RN RN
--- NOTE | 2020-10-05 15:44 | EDPHYS ---
Physician Documentation [facility] Name: Mickie Herman Age: 79 yrs Sex: Female : 1940 Arrival Date: 10/05/2020 Time: 12:57 Bed 17 Private MD: JOHNATHAN Physician Oli Almazan HPI: 10/05 14:59 This 79 yrs old Female presents to ER via Wheelchair with complaints of Hip jmm Pain. 14:59 The patient or guardian reports pain. Onset: The symptoms/episode began/occurred jmm gradually, 3 week(s) ago. Modifying factors: The symptoms are alleviated by nothing, the symptoms are aggravated by any movement. Associated signs and symptoms: Loss of consciousness: the patient experienced no loss of consciousness, Pertinent negatives: dizziness, dysuria, fever, shortness of breath, vomiting. This is a 79 year old female with a history of DVT< HTN, HLP, that presents to the ED with complaints of right hip pain. Denies know trauma, pain is mainly on the lateral side. . Historical: - Allergies: 13:07 No Known Allergies; ll1 - PMHx: 13:07 CVA; DVT; Hypertension; Hyperlipidemia; R breast cancer; Sleep Apnea; Hypothyroidism; ll1 COPD; L eye CA; - PSHx: 13:07 Hysterectomy; Thyroidectomy; ll1 - Immunization history:: Client reports receiving the 1st dose of the Covid vaccine, Flu vaccine is up to date. - Social history:: Smoking status: Patient denies any tobacco usage or history of. ROS: 14:59 Constitutional: Negative for fever, chills, and weight loss, Cardiovascular: Negative jmm for chest pain, palpitations, and edema, Respiratory: Negative for shortness of breath, cough, wheezing, and pleuritic chest pain. 14:59 MS/extremity: Positive for pain. 14:59 All other systems are negative. Exam: 14:59 Constitutional: This is a well developed, well nourished patient who is awake, alert, jmm and in no acute distress. Head/Face: atraumatic. Eyes: EOMI, no conjunctival erythema appreciated ENT: Moist Mucus Membranes Neck: Trachea midline, Supple Chest/axilla: Normal chest wall appearance and motion. Cardiovascular: Regular rate and rhythm. No edema appreciated Respiratory: Normal respirations, no respiratory distress appreciated Abdomen/GI: Non distended, soft Back: Normal ROM Skin: General appearance color normal 14:59 Musculoskeletal/extremity: right lateral hip pain on palpation, mild pain and flexion. 14:59 Skin: Appearance: Color: normal in color. 14:59 Neuro: Orientation: is normal, Mentation: is normal, Memory: is normal. 14:59 Psych: Behavior/mood is pleasant, cooperative. Vital Signs: 13:02 BP 127 / 63; Pulse 73; Resp 17; Temp 98.5; Pulse Ox 98% ; Weight 82.55 kg; Height 5 ft. ll1 0 in. (152.40 cm); Pain 3/10; 17:15 BP 142 / 62; Pulse 64; Resp 17; Pulse Ox 100% on R/A; ll1 13:02 Body Mass Index 35.54 (82.55 kg, 152.40 cm) ll1 MDM: 14:22 Patient medically screened. [facility] 15:42 Data reviewed: vital signs, nurses notes. Counseling: I had a detailed discussion with flavio the patient and/or guardian regarding: the historical points, exam findings, and any diagnostic results supporting the discharge/admit diagnosis, radiology results, the need for outpatient follow up, to return to the emergency department if symptoms worsen or persist or if there are any questions or concerns that arise at home. ED course: No fracture appreciated. Patient is advised to follow up with ortho for reevaluation. Otherwise given strict return precautions. patient understood and agrees with the plan of care. . 10/05 14:22 Order name: Hip Right 2 View XRAY; Complete Time: 14:59 [facility] Administered Medications: 14:50 Drug: morphine 4 mg Route: IM; Site: left deltoid; bw 18:04 Follow up: Response: No adverse reaction; Pain is decreased; RASS: Alert and Calm (0) ll1 14:50 Drug: Zofran (Ondansetron) 4 mg Route: PO; bw 18:05 Follow up: Response: No adverse reaction; RASS: Alert and Calm (0) ll1 Disposition: 17:45 Co-signature as Attending Physician, Oli Almazan MD I agree with the assessment and tw4 plan of care. Disposition: 10/05/20 15:44 Discharged to Home. Impression: Osteoarthritis of hip. - Condition is Stable. - Discharge Instructions: Arthritis. - Prescriptions for orphenadrine citrate 100 mg Oral Tablet Sustained Release - take 1 tablet by ORAL route 2 times per day As needed; 20 tablet. - Medication Reconciliation Form, Thank You Letter, Antibiotic Education, Prescription Opioid Use form. - Follow up: Keyon Minor MD; When: 2 - 3 days; Reason: Recheck today's complaints, Continuance of care, Re-evaluation by your physician. Signatures: Dispatcher [employer] EDMS Saqib Doll PA PA jmm Wadley, Terrence, MD MD tw4 Dean Buckley RN RN ll1 Karis Hood RN RN bw Corrections: (The following items were deleted from the chart) 17:17 15:44 10/05/2020 15:44 Discharged to Home. Impression: Osteoarthritis of hip. Condition ll1 is Stable. Forms are Medication Reconciliation Form, Thank You Letter, Antibiotic Education, Prescription Opioid Use. Follow up: Dr. Keyon Minor; When: 2 - 3 days; Reason: Recheck today's complaints, Continuance of care, Re-evaluation by your physician. flavio
[2020-10-05 17:22] VITALS: BP 127/63; TEMP 98.5; O2SAT 98
== END 2020-10-05 17:17 | disposition home or self-care (01) ==
LOC: ER 12:51
DX: M16.11 Unilateral primary osteoarthritis, right hip (principal); I10 Essential (primary) hypertension; Z85.3 Personal history of malignant neoplasm of breast; Z85.840 Personal history of malignant neoplasm of eye
CPT/HCPCS: 96372; 99284

== ENCOUNTER 2021-02-03 15:21 | Observation (INO) | payer OTHER ==
[2021-02-03] MEDS ORDERED: ONDANSETRON 4 MG/2 ML VIAL ONE ×2 (17:34→19:39)
[2021-02-03] MEDS ORDERED: PANTOPRAZOLE 40 MG INJ ONE (17:34)
[2021-02-03] MEDS ORDERED: METOCLOPRAMIDE 10 MG/2mL INJ ONE (17:34)
--- NOTE | 2021-02-03 18:29 | RAD REPORT ---
EXAM DESCRIPTION: CT - Head Brain Wo Cont - 02/03/2021 6:06 pm CLINICAL HISTORY: DIZZINESS COMPARISON: Head Brain Wo Cont dated 12/11/2017 TECHNIQUE: Axial 5 mm thick images of the head were obtained without IV contrast. All CT scans are performed using dose optimization technique as appropriate and may include automated exposure control or mA/KV adjustment according to patient size. FINDINGS: No intracranial hemorrhage, mass, edema or shift of mid-line structures. No acute cortical based infarction seen. No cortical edema or sulcal effacement. No abnormal extra-axial fluid collect ions. Ventricles appear prominent relative to the amount of volume loss. This is a stable presentatio n. Very extensive cerebral white matter disease is present also stable. Mastoid air cells and visualized portions of the paranasal sinuses are clear. No acute bony findings. IMPRESSION: Negative non-contrast CT head examination for acute finding. Mild for age atrophy with ventricles appearing out of proportion to the volume loss. Correlation is n eeded with any normal pressure hydrocephalus findings. Extensive chronic ischemic change in cerebral white matter and thalamus tissues not clearly different from comparison.
--- NOTE | 2021-02-03 18:29 | RAD REPORT ---
EXAM DESCRIPTION: RAD - Chest Single View - 02/03/2021 6:10 pm CLINICAL HISTORY: dizziness, shortness of breath COMPARISON: Two view chest August 2019 TECHNIQUE: AP portable chest image was obtained 02/03/2021 6:10 pm . FINDINGS: Chronic interstitial lung disease is evident with no peripheral mass consolidation. The in terstitial pattern matches comparison. Heart and vasculature are normal. No measurable pleural effusi on and no pneumothorax. No acute bony abnormality seen. No acute aortic findings suspected. IMPRESSION: No acute cardiopulmonary process. No significant change from comparison.
[2021-02-03 18:35] LABS: Protime INR 1.09
[2021-02-03 18:36] LABS: Absolute Lymphocytes (CBC) 1.1 K/uL (0.7-4.9); Basophils % 0.7 % (0-1.3); Hematocrit 38.4 % (36.0-45.0); Lymphocytes % 10.7 % (15.3-44.8); MPV 8.3 fL (7.6-11.3); RBC Red Blood Cell Count 4.13 M/uL (3.86-4.86)
[2021-02-03 18:37] LABS: ALT/SGPT 18 U/L (12-78); AST/SGOT 19 U/L (15-37); Albumin 3.2 g/dL (3.4-5.0); Alkaline Phosphatase 108 U/L (45-117); BUN Blood Urea Nitrogen 21 mg/dL (7-18); Bicarbonate 27 mmol/L (21-32); Bilirubin Direct 0.2 mg/dL (0-0.2); Bilirubin Total 0.8 mg/dL (0.2-1.0); Glucose Level 102 mg/dL (74-106); Magnesium 2.3 mg/dL (1.8-2.4); NT PRO-BNP 244 pg/mL (<450); Potassium 4.9 mmol/L (3.5-5.1); Protein, Total 6.8 g/dL (6.4-8.2); Sodium Level 136 mmol/L (136-145); Troponin (Emerg Dept Use Only) < 0.02 ng/mL (0.0-0.045)
--- NOTE | 2021-02-03 19:15 | RAD REPORT ---
EXAM DESCRIPTION: US - Extremity Venous Uni Ltd - 02/03/2021 6:36 pm CLINICAL HISTORY: PAIN COMPARISON: None. TECHNIQUE: Real-time sonographic evaluation of the left lower extremity deep venous system was perfo rmed. FINDINGS: Both hypoechoic and slightly hyperechoic thrombus is present within the left leg deep veno us system. The common femoral, superficial femoral, popliteal and posterior tibial veins all show thr ombus filling or mostly filling the lumen. There is absent or diminished compression of the vessels. Doppler evaluation shows diminished blood flow through these vessels. In the soft tissues of the left lower leg there is no hematoma, mass or abnormal fluid collection. IMPRESSION: Extensive acute to subacute thrombus left lower extremity from groin to ankle.
--- NOTE | 2021-02-03 19:35 | ER ---
Nurse's Notes [facility] Name: Mickie Herman Age: 80 yrs Sex: Female : 1940 Arrival Date: 02/03/2021 Time: 15:24 Bed 18 Private MD: Arsenio Young R Diagnosis: Acute embolism and thrombosis of other specified deep vein of left lower extremity;Pulmonary embolism without acute cor pulmonale-bilateral Presentation: 02/03 15:50 Chief complaint: Patient states: About 1430, I was at the kitchen I felt lightheaded, ca1 very nauseated and my L calf was hurting. I noticed my L calf hurting this morning but it just got worse starting at 1430. HX of Stroke. Taking Warfarin. Coronavirus screen: Client denies travel out of the [place] in the last 14 days. nausea. Ebola Screen: Patient negative for fever greater than or equal to 101.5 degrees Fahrenheit, and additional compatible Ebola Virus Disease symptoms Patient denies exposure to infectious person. Patient denies travel to an Ebola-affected area in the 21 days before illness onset. No symptoms or risks identified at this time. Initial Sepsis Screen: Does the patient meet any 2 criteria? No. Patient's initial sepsis screen is negative. Does the patient have a suspected source of infection? No. Patient's initial sepsis screen is negative. Risk Assessment: Do you want to hurt yourself or someone else? Patient reports no desire to harm self or others. Onset of symptoms was February 03, 2021. 15:50 Method Of Arrival: Wheelchair ca1 15:50 Acuity: REBECCA 3 ca1 Triage Assessment: 17:00 General: Appears distressed, uncomfortable, Behavior is cooperative, appropriate for bp age, anxious. Pain: Complains of pain in left calf. EENT: No deficits noted. Neuro: Reports dizziness. Cardiovascular: Rhythm is sinus rhythm. Respiratory: Reports cough that is. GI: No signs and/or symptoms were reported involving the gastrointestinal system. : No signs and/or symptoms were reported regarding the genitourinary system. Derm: No deficits noted. Historical: - Allergies: 15:53 No Known Allergies; ca1 - PMHx: 15:53 COPD; CVA; DVT; Hyperlipidemia; Hypertension; Hypothyroidism; L eye CA; R breast ca1 cancer; Sleep Apnea; - Immunization history:: Adult Immunizations up to date, Client reports receiving the 2nd dose of the Covid vaccine, Client reports receiving the 1st dose of the Covid vaccine, Pneumococcal vaccine is up to date, Flu vaccine is up to date. - Social history:: Smoking status: Patient denies any tobacco usage or history of. Screenin:27 Abuse screen: Denies threats or abuse. Denies injuries from another. Nutritional jm8 screening: No deficits noted. Tuberculosis screening: No symptoms or risk factors identified. Fall Risk None identified. Assessment: 17:05 General: SEE TRIAGE NOTE. bp Vital Signs: 15:50 BP 118 / 73; Pulse 82; Resp 18 S; Temp 97.6(TE); Pulse Ox 97% on R/A; Weight 73.03 kg ca1 (R); Height 4 ft. 11 in. (149.86 cm) (R); Pain 4/10; 17:10 BP 142 / 70 LA Supine (auto/lg); Pulse 65; Resp 20; Pulse Ox 100% on R/A; dh4 17:10 BP 155 / 75 LA Sitting (auto/lg); Pulse 68; Resp 20; Pulse Ox 99% on R/A; dh4 17:10 BP 137 / 71 LA Standing (auto/lg); Pulse 90; Resp 24; Pulse Ox 98% on R/A; dh4 20:27 BP 138 / 74; Pulse 68; Resp 16; Pulse Ox 99% on R/A; jm8 15:50 Body Mass Index 32.52 (73.03 kg, 149.86 cm) ca1 ED Course: 15:24 Patient arrived in ED. mr 15:24 Arsenio Young MD is Private Physician. mr 15:53 Triage completed. ca1 15:53 Arm band placed on right wrist. ca1 16:52 Herman Cota PA is PHCP. cp 16:52 Ang Roldan MD is Attending Physician. cp 17:01 Mark Canchola, RN is Primary Nurse. bp 18:06 CT Head Brain wo Cont In Process Unspecified. EDMS 18:09 XRAY Chest (1 view) In Process Unspecified. EDMS 18:35 US Extremity Venous Unilateral Ltd In Process Unspecified. EDMS 19:01 Primary Nurse role handed off by Mark Canchola, RN mw2 19:06 Mark Canchola, RN is Primary Nurse. bp 19:32 Rayo Oreilly DO is Hospitalizing Provider. cp 19:52 CT Chest For PE Angio In Process Unspecified. EDMS 20:27 Patient has correct armband on for positive identification. Bed in low position. Call 8 light in reach. Side rails up X2. 21:58 No provider procedures requiring assistance completed. Patient admitted, IV remains in [facility]. Administered Medications: 17:30 Drug: Meclizine 25 mg Route: PO; bp 18:12 Follow up: Response: No adverse reaction bp 19:27 Drug: Zofran (Ondansetron) 4 mg Route: IVP; Site: left antecubital; 8 21:51 Follow up: Response: No adverse reaction [facility] 19:27 Drug: NS 0.9% 250 ml Route: IV; Rate: bolus; Site: left antecubital; jm8 21:51 Follow up: IV Status: Completed infusion [facility] 20:29 Drug: Eliquis (apixaban) 10 mg Route: PO; [facility] 21:51 Follow up: Response: No adverse reaction [facility] Outcome: 19:34 Decision to Hospitalize by Provider. cp 21:59 Admitted to Med/surg accompanied by nurse, via wheelchair, Report called to Abimb[facility] HORAN [facility] 21:59 Condition: good 21:59 Instructed on the need for admit. 22:35 Patient left the ED. mw2 Signatures: Dispatcher [employer] EDOH Navya JohnsHerman PA PA cp Mark Canchola RN RN bp Jodi Reyes mw2 Christine Banks RN AUNG [facility] Mychal Lal [facility] Joe Hudson RN RN [facility]
--- NOTE | 2021-02-03 19:35 | EDPHYS ---
Physician Documentation [facility] Name: Mickie Herman Age: 80 yrs Sex: Female : 1940 Arrival Date: 02/03/2021 Time: 15:24 Bed 18 Private MD: Arsenio Young R ED Physician Ang Roldan HPI: 02/03 17:10 This 80 yrs old Female presents to ER via Wheelchair with complaints of cp Dizziness, Leg Pain. 17:10 The patient presents with dizziness, lightheadedness. Onset: The symptoms/episode cp began/occurred today. Context: occurred while the patient was sitting at table. just prior to the episode the patient experienced no apparent symptoms. Associated signs and symptoms: Pertinent positives: left leg pain, Pertinent negatives: abdominal pain, chest pain, combativeness, confusion, focal weakness, shortness of breath, syncope. Severity of symptoms: in the emergency department the symptoms have improved mildly. Patient's baseline: Neuro: alert and fully oriented, Motor: no deficits, Ambulation: walks without assistance. Historical: - Allergies: 15:53 No Known Allergies; ca1 - PMHx: 15:53 COPD; CVA; DVT; Hyperlipidemia; Hypertension; Hypothyroidism; L eye CA; R breast ca1 cancer; Sleep Apnea; - Immunization history:: Adult Immunizations up to date, Client reports receiving the 2nd dose of the Covid vaccine, Client reports receiving the 1st dose of the Covid vaccine, Pneumococcal vaccine is up to date, Flu vaccine is up to date. - Social history:: Smoking status: Patient denies any tobacco usage or history of. ROS: 17:15 Constitutional: Negative for body aches, chills, fever, poor PO intake. cp 17:15 Eyes: Negative for injury, pain, redness, and discharge. cp 17:15 ENT: Negative for ear pain, sore throat, difficulty swallowing, difficulty handling secretions. 17:15 Cardiovascular: Negative for chest pain, palpitations. 17:15 Respiratory: Negative for cough, shortness of breath, wheezing. 17:15 Abdomen/GI: Negative for abdominal pain, nausea, vomiting, and diarrhea, black/tarry stool, rectal bleeding. 17:15 MS/extremity: Positive for pain, of the left leg, Negative for injury or acute deformity, decreased range of motion, paresthesias. 17:15 Neuro: Positive for dizziness, Negative for headache, syncope, weakness. 17:15 All other systems are negative. Exam: 17:20 Constitutional: The patient appears in no acute distress, alert, awake, cp non-diaphoretic, non-toxic, well developed, well nourished. 17:20 Head/Face: Normocephalic, atraumatic. cp 17:20 Eyes: Periorbital structures: appear normal, Pupils: equal, round, and reactive to light and accomodation, Extraocular movements: intact throughout, Conjunctiva: normal, no exudate, no injection, Sclera: no appreciated abnormality, Lids and lashes: appear normal, bilaterally. 17:20 ENT: External ear(s): are unremarkable, Ear canal(s): are normal, clear, TM's: dullness, bilaterally, Nose: is normal, Mouth: Lips: moist, Oral mucosa: moist, Posterior pharynx: Airway: no evidence of obstruction, patent. 17:20 Neck: ROM/movement: is normal, is supple, without pain, no range of motions limitations. 17:20 Chest/axilla: Inspection: normal, Palpation: is normal, no crepitus, no tenderness. 17:20 Cardiovascular: Rate: normal, Rhythm: regular. 17:20 Respiratory: the patient does not display signs of respiratory distress, Respirations: normal, no use of accessory muscles, no retractions, labored breathing, is not present, Breath sounds: are clear throughout, no decreased breath sounds, no stridor, no wheezing. 17:20 Abdomen/GI: Inspection: abdomen appears normal, Palpation: abdomen is soft and non-tender, in all quadrants. 17:20 Musculoskeletal/extremity: Extremities: grossly normal except: noted in the left leg: pain, tenderness, DVT Exam: no erythema, no increased warmth, pain, that is mild, of the left leg, tenderness, that is mild, of the left calf. 17:20 Skin: cellulitis, is not appreciated, no rash present. 17:20 Neuro: Orientation: to person, place \T\ time. Mentation: is normal, Motor: moves all fours, strength is normal. Vital Signs: 15:50 BP 118 / 73; Pulse 82; Resp 18 S; Temp 97.6(TE); Pulse Ox 97% on R/A; Weight 73.03 kg ca1 (R); Height 4 ft. 11 in. (149.86 cm) (R); Pain 4/10; 17:10 BP 142 / 70 LA Supine (auto/lg); Pulse 65; Resp 20; Pulse Ox 100% on R/A; dh4 17:10 BP 155 / 75 LA Sitting (auto/lg); Pulse 68; Resp 20; Pulse Ox 99% on R/A; dh4 17:10 BP 137 / 71 LA Standing (auto/lg); Pulse 90; Resp 24; Pulse Ox 98% on R/A; dh4 20:27 BP 138 / 74; Pulse 68; Resp 16; Pulse Ox 99% on R/A; jm8 15:50 Body Mass Index 32.52 (73.03 kg, 149.86 cm) ca1 MDM: 16:55 Patient medically screened. cp 07/ 17:05 Order name: Urine Microscopic Only cp 02/03 17:05 Order name: Basic Metabolic Panel cp 02/03 17:05 Order name: CBC with Diff cp 02/03 17:05 Order name: LFT's cp 02/03 17:05 Order name: Magnesium cp 07 17:05 Order name: NT PRO-BNP; Complete Time: 18:59 cp 02/03 17:05 Order name: CT Head Brain wo Cont; Complete Time: 18:59 cp 02/03 17:05 Order name: PT-INR; Complete Time: 18:59 cp 02/03 18:59 Interpretation: Reviewed. cp / 17:05 Order name: Troponin (emerg Dept Use Only); Complete Time: 18:59 cp 02/03 17:06 Order name: Urine Microscopic Only EDMS 02/03 17:06 Order name: Basic Metabolic Panel; Complete Time: 18:59 EDMS 02/03 18:59 Interpretation: Normal except: BUN 21; GFR 56. cp 02/03 17:06 Order name: CBC with Automated Diff; Complete Time: 18:59 EDMS 02/03 18:59 Interpretation: Normal except: REJI% 80.2; LYM% 10.7; NEUT A 8.3. cp 02/03 17:06 Order name: Liver (Hepatic) Function; Complete Time: 18:59 EDMS 02/03 19:00 Interpretation: Normal except: ALB 3.2; GLOB 3.6; A/G 0.9. cp 02/03 17:06 Order name: Magnesium; Complete Time: 18:59 EDMS 02/03 17:05 Order name: Orthostatics; Complete Time: 17:09 cp 02/03 17:05 Order name: XRAY Chest (1 view); Complete Time: 18:59 cp 02/03 17:05 Order name: EKG; Complete Time: 17:06 cp 02/03 17:05 Order name: Cardiac monitoring; Complete Time: 17:58 cp 02/03 17:05 Order name: EKG - Nurse/Tech; Complete Time: 17:22 cp 02/03 17:05 Order name: IV Saline Lock; Complete Time: 17:58 cp 02/03 17:05 Order name: Labs collected and sent; Complete Time: 17:58 cp 02/03 17:05 Order name: O2 Per Protocol; Complete Time: 17:58 cp 02/03 17:05 Order name: O2 Sat Monitoring; Complete Time: 17:57 cp 02/03 17:05 Order name: US Extremity Venous Unilateral Ltd; Complete Time: 19:18 cp 02/03 19:19 Interpretation: Report reviewed. 02/03 19:26 Order name: CT Chest For PE Angio; Complete Time: 20:43 cp Administered Medications: 17:30 Drug: Meclizine 25 mg Route: PO; bp 18:12 Follow up: Response: No adverse reaction bp 19:27 Drug: Zofran (Ondansetron) 4 mg Route: IVP; Site: left antecubital; jm8 21:51 Follow up: Response: No adverse reaction 8 19:27 Drug: NS 0.9% 250 ml Route: IV; Rate: bolus; Site: left antecubital; jm8 21:51 Follow up: IV Status: Completed infusion jm8 20:29 Drug: Eliquis (apixaban) 10 mg Route: PO; jm8 21:51 Follow up: Response: No adverse reaction [facility] Disposition: 02/04 18:39 Co-signature as Attending Physician, Ang Roldan MD I agree with the assessment and rn plan of care. Attestation: The patient's history, exam findings, diagnostics, and a summary of any interventions or procedures was reviewed in detail with Herman OSULLIVAN. Disposition Summary: 02/03/21 19:34 Hospitalization Ordered Hospitalization Status: Observation cp Provider: Rayo Oreilly cp Location: Telemetry/MedSurg (observation) cp Condition: Stable cp Problem: new cp Symptoms: have improved cp Bed/Room Type: Standard cp Room Assignment: 222(02/03/21 20:18) cg Diagnosis - Acute embolism and thrombosis of other specified deep vein of left lower extremity cp - Pulmonary embolism without acute cor pulmonale - bilateral cp Forms: - Medication Reconciliation Form cp - SBAR form cp Signatures: Dispatcher [employer] EDMS Ang Roldan MD MD rn Page, Corey, PA PA cp Renuka Moses RN RN cg Mark Canchola RN RN bp Christine Banks RN RN [facility] Joe Hudson RN RN jm8 Corrections: (The following items were deleted from the chart) 02/03 20:18 19:34 cp cg
[2021-02-03] MEDS ORDERED: NA CHLORIDE 0.9% 250 ML ONE (19:39)
[2021-02-03] MEDS ORDERED: APIXABAN 5 MG TABLET ONE (20:28)
--- NOTE | 2021-02-03 20:31 | RAD REPORT ---
EXAM DESCRIPTION: CT - Chest For Pe Angio - 02/03/2021 7:53 pm CLINICAL HISTORY: dizziness COMPARISON: RAD THERAPY [facility] dated 09/25/2010 TECHNIQUE: Dynamically enhanced 3 mm thick images of the chest were obtained during administration o f approximately 150mL Isovue 370 IV contrast. Coronal and oblique MIP reconstruction images were gene rated and reviewed. Exam utilizes a protocol to evaluate the pulmonary arterial tree. All CT scans are performed using dose optimization technique as appropriate and may include automated exposure control or mA/KV adjustment according to patient size. FINDINGS: Segmental and subsegmental pulmonary emboli are present in the anterior aspect of the left upper lobe. Lobar and segmental branch pulmonary emboli are present in the central aspect of the lef t lower lobe. Thrombus is present in the right pulmonary artery extending into the right upper lobe a re artery and 2 segmental branches. Additional thrombus continues into the right middle lobe are pulm onary artery and at least 1 moderate-size right middle lobe segmental pulmonary artery. Large thrombu s fills most of the right lower lobe pulmonary artery with extension into multiple segmental branches . No pulmonary hemorrhage identified. No infiltrate or mass of the lung parenchyma. The aorta as imaged shows no acute or suspicious finding. No pericardial thickening or effusion. No pleural effusion or pleural thickening. No mediastinal or hilar suspicious masses. No chest wall masses or abnormal axillary lymphadenopathy. IMPRESSION: Extensive pulmonary embolic disease involving lobar and segmental branch pulmonary arter ies of the right upper, right middle, right lower and left lower lobes. There are segmental branch pu lmonary emboli in the left upper lobe. No pulmonary hemorrhage or infarction changes. No acute infiltrate or mass of the lung parenchyma.
[2021-02-03] MEDS ORDERED: ONDANSETRON 4 MG/2 ML VIAL IV PRN (22:58)
[2021-02-03] MEDS ORDERED: ALBUTEROL 2.5 MG/3 ML NEB SOL NEB PRN (22:58)
[2021-02-03] MEDS ORDERED: ACETAMINOPHEN 500 MG TAB PO PRN (22:58)
[2021-02-03 23:31] VITALS: O2SAT 96
[2021-02-04 00:17] VITALS: BMI 32.5
[2021-02-04 04:23] LABS: Protime INR 1.66
[2021-02-04 04:30] LABS: Absolute Lymphocytes (CBC) 1.8 K/uL (0.7-4.9); Basophils % 0.6 % (0-1.3); Hematocrit 34.3 % (36.0-45.0); Lymphocytes % 20.8 % (15.3-44.8); MPV 8.3 fL (7.6-11.3); RBC Red Blood Cell Count 3.74 M/uL (3.86-4.86)
[2021-02-04 04:32] LABS: Albumin 2.8 g/dL (3.4-5.0); Bilirubin Total 0.7 mg/dL (0.2-1.0); Magnesium 2.1 mg/dL (1.8-2.4); Phosphorus 3.2 mg/dL (2.5-4.9); Potassium 4.2 mmol/L (3.5-5.1); Protein, Total 5.9 g/dL (6.4-8.2); Thyroid Stimulating Hormone 0.58 uIU/mL (0.360-3.740)
--- NOTE | 2021-02-04 04:48 | P.HP ---
Certification for Inpatient Patient admitted to: Inpatient With expected LOS: >2 Midnights Patient will require the following post-hospital care: None Practitioner: I am a practitioner with admitting privileges, knowledge of patient current condition, hospital course, and medical plan of care. Services: Services provided to patient in accordance with Admission requirements found in Title 42 Section 412.3 of the Code of Federal Regulations <Sudhir Dorman S - Last Filed: 02/04/21 04:37> Patient admitted to: Observation With expected LOS: <2 Midnights <Rayo Oreilly - Last Filed: 02/04/21 13:43> Patient History Date of Service: 02/03/21 Primary Care Provider: Hannah Reason for admission: PE, DVT History of Present Illness: Ms. Herman is a 80 yo F with COPD, HLd, HTN, hypothyroidism, history of breast cancer, history of CVA, MICHELLE here today for L calf pain that has worsened over the past few months and an episode of lightheadedness and nausea earlier today. She has had a DVT in her left leg in the past. She takes warfarin, INR subt herapeutic. She reports SOB that is constant, denies chest pain. US of the leg showed extensive acute to subacute thrombus left lower extremity from groin to ankle. CTPE showed extensive pulmonary embolic disease involving lobar and segmental branch pulmonary arteries of the right upper, right middle, right lower and left lower lobes. There are segmental branch pulmonary emboli in the left upper lobe. - Past Medical/Surgical History Has patient received pneumonia vaccine in the past: Yes Diabetic: No -: CVA -: anxiety -: DVT -: hypertension -: sleep apnea -: Breast cancer -: left eye CA -: HLD -: right knee suegery -: hysterectomy -: tubal ligation -: R breast CA w/ lymph node removal -: thyroidectomy -: sleep apnea - Family History Mother -: Heart disease, Stroke Father -: Heart disease - Social History Smoking Status: Never smoker Alcohol use: No CD- Drugs: No Caffeine use: No Place of Residence: Home <Sudhir Dorman - Last Filed: 02/04/21 04:37> Date of Service: 02/04/21 Home medications list reviewed: Yes - Past Medical/Surgical History Psychosocial/ Personal History: Patient lives at home - Family History Family History: Reviewed- Non-Contributory <Prezas,Rayo - Last Filed: 02/04/21 13:43> Allergies No Known Allergies Allergy (Verified 08/28/19 02:54) Home Medications: Calcium Carbonate [Calcium] 1 tab PO BID 08/28/19 Levothyroxine Sodium 1 tab PO [id number] 08/28/19 Trazodone [Desyrel*] 1 tab PO BEDTIME 08/28/19 Vit D3/Folic Acid/B2/B6/B12 [Folgard Tablet] 1,000 iu PO DAILY 08/28/19 Zinc 1 tab PO DAILY 08/28/19 Albuterol Sulfate [Proair Hfa] 2 puff IH QID 02/03/21 Atorvastatin Calcium [Lipitor*] 20 mg PO BEDTIME 02/03/21 Spironolactone 25 mg PO BIDL 02/03/21 Rivaroxaban [Xarelto*] 15 mg PO BID #42 tablet 02/04/21 Review of Systems 10-point ROS is otherwise unremarkable Respiratory: Shortness of Breath Cardiovascular: Light Headedness Gastrointestinal: Nausea Musculoskeletal: Leg Pain <Sudhir Dorman - Last Filed: 02/04/21 04:37> Physical Examination - Vital Signs Temperature: 97.7 F Blood Pressure: 147/69 Pulse: 74 Respirations: 18 Pulse Ox (%): 96 - Physical Exam General: Alert, In no apparent distress HEENT: Atraumatic, PERRLA, Mucous membr. moist/pink, EOMI, Sclerae nonicteric Neck: Supple, 2+ carotid pulse no bruit, No LAD, Without JVD or thyroid abnormality Respiratory: Clear to auscultation bilaterally, Normal air movement Cardiovascular: Regular rate/rhythm, Normal S1 S2 Gastrointestinal: Normal bowel sounds, No tenderness Musculoskeletal: Tenderness Integumentary: No rashes, Tenderness/swelling Neurological: Normal speech, Normal strength at 5/5 x4 extr, Normal tone, Normal affect Lymphatics: No axilla or inguinal lymphadenopathy - Studies Laboratory Data (last 24 hrs) 02/03/21 17:54: PT 12.6 H, INR 1.09 02/03/21 17:54: WBC 10.30, Hgb 12.9, Hct 38.4, Plt Count 255 02/03/21 17:54: Sodium 136, Potassium 4.9, BUN 21 H, Creatinine 0.96, Glucose 102, Magnesium 2.3, Total Bilirubin 0.8, AST 19, ALT 18, Alkaline Phosphatase 108 <Sudhir Dorman S - Last Filed: 02/04/21 04:37> - Studies Laboratory Data (last 24 hrs) 02/03/21 17:54: PT 12.6 H, INR 1.09 02/03/21 17:54: WBC 10.30, Hgb 12.9, Hct 38.4, Plt Count 255 02/03/21 17:54: Sodium 136, Potassium 4.9, BUN 21 H, Creatinine 0.96, Glucose 102, Magnesium 2.3, Total Bilirubin 0.8, AST 19, ALT 18, Alkaline Phosphatase 108 <Rayo Oreilly - Last Filed: 02/04/21 13:43> Assessment and Plan - Plan Assessment Multiple DVTs and PEs, subtherapeutic INR on warfarin COPD MICHELLE HLD HTN hypothyroidism Plan Multiple DVTs and PEs, subtherapeutic INR on warfarin - eliquis 10 mg BID x 7 days COPD - breathing treatments as needed, O2s as needed MICHELLE - CPAP at bedtime HLD - stable, continue to monitor HTN - stable, continue to monitor hypothyroidism - stable, continue to monitor Discharge Plan: Home Plan to discharge in: 48 Hours - Advance Directives Does patient have a Living Will: Yes Does patient have a Durable POA for Healthcare: Yes - Code Status/Comfort Care Code Status Assessed: Yes (full code ) Critical Care: No Time Spent Managing Pts Care (In Minutes): 70 <Sudhir Dorman S - Last Filed: 02/04/21 04:37> - Plan Agree with plan of care. Will change Eliquis to 15 mg twice daily for 21 days then 20 mg daily. Please see discharge summary for details. Case discussed in detail with oncology. <Rayo Oreilly - Last Filed: 02/04/21 13:43>
[2021-02-04 05:16] LABS: Urine Appearance CLEAR (Clear); Urine Bilirubin NEGATIVE (Negative); Urine Blood NEGATIVE (Negative); Urine Color YELLOW (Yellow); Urine Glucose NEGATIVE (Negative); Urine Protein NEGATIVE (Negative); Urine Specific Gravity >=1.030 (1.005-1.030)
[2021-02-04 05:38] LABS: Urine Microscopic Reflex NO UMIC
--- NOTE | 2021-02-04 06:16 | P.PN ---
Subjective Date of Service: 02/04/21 Primary Care Provider: Dr. Young; Oncology-Dr. Recio Chief Complaint: PE, DVT Subjective: Other (She takes Coumadin. She has be it for 20 years. It was due to her Stroke. She had right breast cancer. Hx of right breast mastectomy. No Ch emo. It is in remission. On Anastrole. Sees Dr. Recio. Compliant with Coumadin. INR is checked every month.) Physical Examination - Vital Signs Temperature: 97.7 F Blood Pressure: 147/69 Pulse: 74 Respirations: 18 Pulse Ox (%): 96 - Studies Laboratory Data (last 24 hrs) 02/03/21 17:54: PT 12.6 H, INR 1.09 02/03/21 17:54: WBC 10.30, Hgb 12.9, Hct 38.4, Plt Count 255 02/03/21 17:54: Sodium 136, Potassium 4.9, BUN 21 H, Creatinine 0.96, Glucose 102, Magnesium 2.3, Total Bilirubin 0.8, AST 19, ALT 18, Alkaline Phosphatase 108 Assessment & Plan Discharge Plan: Home Plan to discharge in: 24 Hours Physician Review Additional Text: CT Head: COMPARISON: Head Brain Wo Cont dated 12/11/2017 TECHNIQUE: Axial 5 mm thick images of the head were obtained without IV contrast. All CT scans are performed using dose optimization technique as appropriate and may include automated exposure control or mA/KV adjustment according to patient size. FINDINGS: No intracranial hemorrhage, mass, edema or shift of mid-line structures. No acute cortical based infarction seen. No cortical edema or sulcal effacement. No abnormal extra-axial fluid collections. Ventricles appear prominent relative to the amount of volume loss. This is a stable presentation. Very extensive cerebral white matter disease is present also stable. Mastoid air cells and visualized portions of the paranasal sinuses are clear. No acute bony findings. IMPRESSION: Negative non-contrast CT head examination for acute finding. Mild for age atrophy with ventricles appearing out of proportion to the volume loss. Correlation is needed with any normal pressure hydrocephalus findings. Extensive chronic ischemic change in cerebral white matter and thalamus tissues not clearly different from comparison. CT scan chest: COMPARISON: RAD THERAPY [facility] dated 09/25/2010 TECHNIQUE: Dynamically enhanced 3 mm thick images of the chest were obtained during administration of approximately 150mL Isovue 370 IV contrast. Coronal and oblique MIP reconstruction images were generated and reviewed. Exam utilizes a protocol to evaluate the pulmonary arterial tree. All CT scans are performed using dose optimization technique as appropriate and may include automated exposure control or mA/KV adjustment according to patient size. FINDINGS: Segmental and subsegmental pulmonary emboli are present in the anterior aspect of the left upper lobe. Lobar and segmental branch pulmonary emboli are present in the central aspect of the left lower lobe. Thrombus is present in the right pulmonary artery extending into the right upper lobe are artery and 2 segmental branches. Additional thrombus continues into the right middle lobe are pulmonary artery and at least 1 moderate-size right middle lobe segmental pulmonary artery. Large thrombus fills most of the right lower lobe pulmonary artery with extension into multiple segmental branches. No pulmonary hemorrhage identified. No infiltrate or mass of the lung pa renchyma. The aorta as imaged shows no acute or suspicious finding. No pericardial thickening or effusion. No pleural effusion or pleural thickening. No mediastinal or hilar suspicious masses. No chest wall masses or abnormal axillary lymphadenopathy. 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 There are segmental branch pulmonary emboli in the left upper lobe. No pulmonary hemorrhage or infarction changes. No acute infiltrate or mass of the lung parenchyma. Venous Doppler: COMPARISON: None. TECHNIQUE: Real-time sonographic evaluation of the left lower extremity deep venous system was performed. FINDINGS: Both hypoechoic and slightly hyperechoic thrombus is present within the left leg deep venous system. The common femoral, superficial femoral, popliteal and posterior tibial veins all show thrombus filling or mostly filling the lumen. There is absent or diminished compression of the vessels. Doppler evaluation shows diminished blood flow through these vessels. In the soft tissues of the left lower leg there is no hematoma, mass or abnormal fluid collection. IMPRESSION: Extensive acute to subacute thrombus left lower extremity from groin to ankle. Physical exam: General: Alert, In no apparent distress HEENT: Atraumatic, PERRLA, Mucous membr. moist/pink, EOMI, Sclerae nonicteric Neck: Supple, 2+ carotid pulse no bruit, No LAD, Without JVD or thyroid abnormality Respiratory: Clear to auscultation bilaterally, Normal air movement Cardiovascular: Regular rate/rhythm, Normal S1 S2 Gastrointestinal: Normal bowel sounds, No tenderness Musculoskeletal: Tenderness Integumentary: No rashes, Tenderness/swelling Neurological: Normal speech, Normal strength at 5/5 x4 extr, Normal tone, Normal affect Lymphatics: No axilla or inguinal lymphadenopathy Impression: Extensive pulmonary embolic disease involving lobar and segmental branch pulmonary arteries of the right upper, right middle, right lower and left lower lobes along with segmental branch pulmonary emboli in the left upper lobe further complicated with extensive acute to subacute thrombus to the left lower extremity from groin to ankle on chronic anticoagulation therapyCoumadin subtherapeutic INR COPD MICHELLE Hyperlipidemia HTN Hypothyroidism History of CVA Insomnia Plan Extensive pulmonary embolic disease involving lobar and segmental branch pulmonary arteries of the right upper, right middle, right lower and left lower lobes along with segmental branch pulmonary emboli in the left upper lobe further complicated with extensive acute to subacute thrombus to the left lower extremity from groin to ankle on chronic anticoagulation therapyCoumadin subtherapeutic INR: Patient has been taking Coumadin for over 20 years. She initially took medication due to her history of CVA. Patient with history of DVT in the past as well. 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 Recio. Patient subtherapeutic on Coumadin. Will order echocardiogram to further evaluate. Due to subtherapeutic levels on Coumadin will switch to Xarelto. Coumadin discontinued at this time. We will continue with Xarelto 15 mg twice daily for 21 days then switch over to 20 mg daily with food indefinitely. Will check with community mental health social worker to help provide coupon and make sure that this will be cost effective for her. Patient will no longer take Coumadin once Xarelto is in place. Will start Xarelto at this time. Physical therapy to assess ambulation. Consider discharge later today if we can make sure patient will be able to afford Xarelto. COPD: We will provide medication for COPD. Patient takes Symbicort 2 puffs twice daily and albuterol 2 puffs 3 times a day as needed for shortness of breath at home. MICHELLE: Continue CPAP at night. Hyperlipidemia: Continue Lipitor 20 mg daily HTN: Continue Aldactone 25 mg 1 pill twice daily Hypothyroidism: Continue levothyroxine 100 mcg daily History of CVA: Continue with above plan of care. Insomnia: Continue with trazodone 50 mg at bedtime DVT prophylaxis: Eliquis CODE STATUS: Full code Advance care [id number] minutes: Home at discharge Time Spent Managing Pts Care (In Minutes): 55
[2021-02-04] MEDS ORDERED: FOLBIC 1 TAB PO SCH (09:00)
[2021-02-04] MEDS ORDERED: CALCIUM CARBONATE 500 MG TAB PO SCH (09:00)
[2021-02-04] MEDS ORDERED: ZINC SULFATE 220 MG CAP PO SCH (09:00)
[2021-02-04] MEDS ORDERED: RIVAROXABAN 15 MG TABLET PO SCH (09:08)
--- NOTE | 2021-02-04 09:27 | P.DS ---
Admission Date: 02/03/21 Discharge Date: 02/04/21 Primary Care Provider: Dr. Young; Oncology-Dr. Recio Disposition: ROUTINE DISCHARGE Discharge Condition: GOOD Reason for Admission: PE, DVT Consultations: Phone consultation with Hematology/Oncology-Dr. Recio Procedures: CT Head: COMPARISON: Head Brain Wo Cont dated 12/11/2017 TECHNIQUE: Axial 5 mm thick images of the head were obtained without IV contrast. All CT scans are performed using dose optimization technique as appropriate and may include automated exposure control or mA/KV adjustment according to patient size. FINDINGS: No intracranial hemorrhage, mass, edema or shift of mid-line structures. No acute cortical based infarction seen. No cortical edema or sulcal effacement. No abnormal extra-axial fluid collections. Ventricles appear prominent relative to the amount of volume loss. This is a stable presentation. Very extensive cerebral white matter disease is present also stable. Mastoid air cells and visualized portions of the paranasal sinuses are clear. No acute bony findings. IMPRESSION: Negative non-contrast CT head examination for acute finding. Mild for age atrophy with ventricles appearing out of proportion to the volume loss. Correlation is needed with any normal pressure hydrocephalus findings. Extensive chronic ischemic change in cerebral white matter and thalamus tissues not clearly different from comparison. CT scan chest: COMPARISON: RAD THERAPY FLD [facility] dated 09/25/2010 TECHNIQUE: Dynamically enhanced 3 mm thick images of the chest were obtained during administration of approximately 150mL Isovue 370 IV contrast. Coronal and oblique MIP reconstruction images were generated and reviewed. Exam utilizes a protocol to evaluate the pulmonary arterial tree. All CT scans are performed using dose optimization technique as appropriate and may include automated exposure control or mA/KV adjustment according to patient size. FINDINGS: Segmental and subsegmental pulmonary emboli are present in the anterior aspect of the left upper lobe. Lobar and segmental branch pulmonary emboli are present in the central aspect of the left lower lobe. Thrombus is present in the right pulmonary artery extending into the right upper lobe are artery and 2 segmental branches. Additional thrombus continues into the right middle lobe are pulmonary artery and at least 1 moderate-size right middle lobe segmental pulmonary artery. Large thrombus fills most of the right lower lobe pulmonary artery with extension into multiple segmental branches. No pulmonary hemorrhage identified. No infiltrate or mass of the lung parenchyma. The aorta as imaged shows no acute or suspicious finding. No pericardial thickening or effusion. No pleural effusion or pleural thickening. No mediastinal or hilar suspicious masses. No chest wall masses or abnormal axillary lymphadenopathy. 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 There are segmental branch pulmonary emboli in the left upper lobe. No pulmonary hemorrhage or infarction changes. No acute infiltrate or mass of the lung parenchyma. Venous Doppler: COMPARISON: None. TECHNIQUE: Real-time sonographic evaluation of the left lower extremity deep venous system was performed. FINDINGS: Both hypoechoic and slightly hyperechoic thrombus is present within the left leg deep venous system. The common femoral, superficial femoral, popliteal and posterior tibial veins all show thrombus filling or mostly filling the lumen. There is absent or diminished compression of the vessels. Doppler evaluation shows diminished blood flow through these vessels. In the soft tissues of the left lower leg there is no hematoma, mass or abnormal fluid collection. IMPRESSION: Extensive acute to subacute thrombus left lower extremity from groin to ankle. 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 Herman is a 80 yo F with COPD, HLd, HTN, hypothyroidism, history of breast cancer, history of CVA, MICHELLE here today for L calf pain that has worsened over the past few months and an episode of lightheadedness and nausea earlier today. She has had a DVT in her left leg in the past. She takes warfarin, INR subtherapeutic. She reports SOB that is constant, denies chest pain. US of the leg showed extensive acute to subacute thrombus left lower extremity from groin to ankle. CTPE showed extensive pulmonary embolic disease involving lobar and segmental branch pulmonary arteries of the right upper, right middle, right lower and left lower lobes. There are segmental branch pulmonary emboli in the left upper lobe. Patient was admitted for further evaluation and treatment. Hospital Course: Patient presented with left calf pain. Patient found to have extensive pulmonary embolic disease involving lobar and segmental branch pulmonary arteries of the right upper, right middle, right lower and left lower lobes along with segmental branch pulmonary emboli in the left upper lobe further complicated with extensive acute to subacute thrombus to the left lower extremity from groin to ankle on chronic anticoagulation therapyCoumadin. Patient has been taking Coumadin for over 20 years due to her history of CVA and prior DVT. Patient was subtherapeutic with her Coumadin level. Case discussed at length with her walking dragline operator oncologist Dr. Recio. It was recommended to discontinue Coumadin. Patient will be switched over to Xarelto. At discharge she will continue with Xarelto 15 mg 1 pill twice daily for 21 days then this will be switched to Xarelto 20 mg daily with food indefinitely. Social work consulted to help and make sure patient will be able to get medication and this will be cost effective for her. Patient will need to follow-up with hematology oncology within 1 week to follow-up hospitalization and continue her care. Recommend follow-up with her PCP in 1 week to go over changes in further monitor. Recommend to recheck labCBC in 1 to 2 weeks. Patient with underlying COPD. At discharge she will continue with her medication including Symbicort 2 puffs twice daily and albuterol 2 puffs 3 times a day as needed for shortness of breath at home. Patient with obstructive sleep apnea. At discharge she will continue with CPAP at night. Patient with hyperlipidemia. At discharge she will continue with Lipitor 20 mg daily. Patient with hypertension. At discharge she will continue with Aldactone 25 mg 1 pill twice daily. Patient with hypothyroidism. At discharge we will continue with levothyroxine 100 mcg daily. Patient with history of CVA. Continue with above plan of care. Patient with insomnia. At discharge she will continue with trazodone 50 mg at bedtime as needed. Patient with breast cancer currently in remission. She will continue with her current medications. Recommend follow-up with hematology oncology as directed above. Vital Signs/Physical Exam: Temp Pulse Resp BP Pulse Ox 97.7 F 74 18 147/69 H 96 02/04/21 09:25 02/04/21 09:25 02/04/21 09:25 02/04/21 09:25 02/04/21 09:25 General: Alert, In no apparent distress, Oriented x3, Cooperative HEENT: Atraumatic Neck: Supple Respiratory: Clear to auscultation bilaterally, Normal air movement Cardiovascular: Normal pulses, Regular rate/rhythm Gastrointestinal: Normal bowel sounds, No tenderness, No masses, No rebound, No guarding Musculoskeletal: No erythema, No tenderness, No warmth Integumentary: No tenderness/swelling, No erythema, No warmth, No cyanosis Neurological: Normal speech, Normal strength at 5/5 x4 extr, Normal tone, Normal affect Laboratory Data at Discharge: WBC 8.80 K/uL (4.3-10.9) D 02/04/21 03:13 Hgb 11.9 g/dL (12.0-15.0) L 02/04/21 03:13 Hct 34.3 % (36.0-45.0) L 02/04/21 03:13 Plt Count 227 K/uL (152-406) 02/04/21 03:13 PT 19.2 SECONDS (9.5-12.5) H 02/04/21 03:13 INR 1.66 02/04/21 03:13 APTT 29.2 SECONDS (24.3-36.9) 02/04/21 03:13 Sodium 137 mmol/L (136-145) 02/04/21 03:13 Potassium 4.2 mmol/L (3.5-5.1) 02/04/21 03:13 BUN 20 mg/dL (7-18) H 02/04/21 03:13 Creatinine 0.95 mg/dL (0.55-1.3) 02/04/21 03:13 Glucose 83 mg/dL (74-106) 02/04/21 03:13 Phosphorus 3.2 mg/dL (2.5-4.9) 02/04/21 03:13 Magnesium 2.1 mg/dL (1.8-2.4) 02/04/21 03:13 Total Bilirubin 0.7 mg/dL (0.2-1.0) 02/04/21 03:13 AST 18 U/L (15-37) 02/04/21 03:13 ALT 16 U/L (12-78) 02/04/21 03:13 Alkaline Phosphatase 91 U/L (45-117) 02/04/21 03:13 Triglycerides 90 mg/dL (<150) 02/04/21 03:13 Cholesterol 163 mg/dL (<200) 02/04/21 03:13 HDL Cholesterol 38 mg/dL (40-60) L 02/04/21 03:13 Cholesterol/HDL Ratio 4.29 02/04/21 03:13 Home Medications: Calcium Carbonate [Calcium] 1 tab PO BID 08/28/19 Levothyroxine Sodium 1 tab PO [id number] 08/28/19 Trazodone [Desyrel*] 1 tab PO BEDTIME 08/28/19 Vit D3/Folic Acid/B2/B6/B12 [Folgard Tablet] 1,000 iu PO DAILY 08/28/19 Zinc 1 tab PO DAILY 08/28/19 Albuterol Sulfate [Proair Hfa] 2 puff IH QID 02/03/21 Atorvastatin Calcium [Lipitor*] 20 mg PO BEDTIME 02/03/21 Spironolactone 25 mg PO BIDL 02/03/21 Rivaroxaban [Xarelto*] 15 mg PO BID #42 tablet 02/04/21 New Medications: Rivaroxaban [Xarelto*] 15 mg PO BID #42 tablet Physician Discharge Instructions: Patient presented with left calf pain. Patient found to have extensive pulmonary embolic disease involving lobar and segmental branch pulmonary arteries of the right upper, right middle, right lower and left lower lobes al lu with segmental branch pulmonary emboli in the left upper lobe further complicated with extensive acute to subacute thrombus to the left lower extremity from groin to ankle on chronic anticoagulation therapyCoumadin. Patient has been taking Coumadin for over 20 years due to her history of CVA and prior DVT. Patient was subtherapeutic with her Coumadin level. Case discussed at length with her walking dragline operator oncologist Dr. Recio. It was recommended to discontinue Coumadin. Patient will be switched over to Xarelto. At discharge she will continue with Xarelto 15 mg 1 pill twice daily for 21 days then this will be switched to Xarelto 20 mg daily with food indefinitely. Social work consulted to help and make sure patient will be able to get medication and this will be cost effective for her. Patient will need to follow-up with hematology oncology within 1 week to follow-up hospitalization and continue her care. Recommend follow-up with her PCP in 1 week to go over changes in further monitor. Recommend to recheck labCBC in 1 to 2 weeks. Patient with underlying COPD. At discharge she will continue with her medication including Symbicort 2 puffs twice daily and albuterol 2 puffs 3 times a day as needed for shortness of breath at home. Patient with obstructive sleep apnea. At discharge she will continue with CPAP at night. Patient with hyperlipidemia. At discharge she will continue with Lipitor 20 mg daily. Patient with hypertension. At discharge she will continue with Aldactone 25 mg 1 pill twice daily. Patient with hypothyroidism. At discharge we will continue with levothyroxine 100 mcg daily. Patient with history of CVA. Continue with above plan of care. Patient with insomnia. At discharge she will continue with trazodone 50 mg at bedtime as needed. Patient with breast cancer currently in remission. She will continue with her current medications. Recommend follow-up with hematology oncology as directed above. Diet: AHA Activity: Fall precautions Followup: Arsenio Young MD [Primary Care Provider] - Time spent managing pt's care (in minutes): 55
[2021-02-04] MEDS: SPIRONOLACTONE 25 MG TABLET PO SCH ×2 (09:42→16:57)
[2021-02-04 17:31] VITALS: BP 115/58; TEMP 97.8
[2021-02-04] MEDS ORDERED: ARFORMOTEROL TARTRATE 15 MCG/2 ML VIAL.NEB NEB SCH (20:00)
[2021-02-04] MEDS ORDERED: ATORVASTATIN 20 MG TAB PO SCH (21:00)
[2021-02-04] MEDS ORDERED: TRAZODONE 50 MG TABLET PO SCH (21:00)
[2021-02-04] MEDS ORDERED: ENSURE HIGH PROTEIN 237 ML CAN PO SCH (21:00)
[2021-02-05] MEDS ORDERED: LEVOTHYROXINE SOD 0.1 MG TAB PO SCH (06:00)
== END 2021-02-04 19:25 | disposition home or self-care (01) ==
LOC: ER 15:21 → ERHOLD 19:41 → 2ND 21:56
PROVIDERS: ADMIT Family Medicine; ATTEND Family Medicine
DX: I26.99 Other pulmonary embolism without acute cor pulmonale (principal); I82.412 Acute embolism and thrombosis of left femoral vein; I82.432 Acute embolism and thrombosis of left popliteal vein; I82.442 Acute embolism and thrombosis of left tibial vein; J44.9 Chronic obstructive pulmonary disease, unspecified; Z79.01 Long term (current) use of anticoagulants; G47.33 Obstructive sleep apnea (adult) (pediatric); E78.5 Hyperlipidemia, unspecified; I10 Essential (primary) hypertension; E03.9 Hypothyroidism, unspecified; Z86.73 Personal history of transient ischemic attack (TIA), and cerebral infarction without residual deficits; G47.00 Insomnia, unspecified; Z85.3 Personal history of malignant neoplasm of breast
CPT/HCPCS: 85025 ×2; 80048; 36415; 83735 ×2; 84100; 85610 ×2; 80061; 80076; 85730; 84443; 81003; 84484; 84439; 80053; 83880; 70450; 71275; 71045; 93971; 97116; 97161; 94760; Q9967; J2765; C9113; J7050; J2405 ×2; G0378 ×2; 96365; 96366; 96375; 99285